=== PATIENT | male | born 1950 | race African-American/Black ===

== ENCOUNTER → 2016-02-10 | Emergency (ER) | payer MEDICAID ==
[~2016-02-10] VITALS: Ht 160 cm; Wt 72.6 kg
[~2016-02-10] MED LIST: AMLODIPINE BES2.5 MG ORAL; HYDROCHLOROTHIA50 MG ORAL; KEFLEX500 MG ORAL; TAMSULOSIN HCL0.4 MG ORAL
[2016-02-10 02:20] VITALS: BP 185/79
[2016-02-10 03:00] LABS: APPEARANCE,URINE CLEAR; KETONES,URINE NEGATIVE (NEGATIVE); LEUKOCYTE ESTERASE ,URINE 2+ (NEGATIVE); NITRITE,URINE NEGATIVE (NEGATIVE); PH,URINE 5 (4.5-8.0); PROTEIN,URINE NEGATIVE (NEGATIVE); UROBILINOGEN,URINE NORMAL MG/DL (0.0-1.0)
[2016-02-10 03:12] LABS: BACTERIA,URINE OCCASIONAL /HPF; RBC,URINE 0-2 /HPF (0 - 0); SQUAMOUS EPITHELIAL CELL,UR OCCASIONAL /LPF (NONE/OCC)
--- NOTE | 2016-02-10 03:21 | Emergency Room Report ---
History of Present Illness General Chief Complaint: General Complaint Source: Patient Present Illness HPI Is a 65-year-old male with history hypertension. He presents with right flank pain. Onset for the last 4 days. The decreased appetite. No nausea no vomiting. No diarrhea. Denies any other complaint. Pain is achy nature. No chest pain. Allergies: Coded Allergies: No Known Allergies (Unverified , 02/10/16) Patient History Past Medical History: see triage record, old chart reviewed, HTN Past Surgical History: none Pertinent Family History: none Social History: Denies: smoking Immunizations: other Reviewed Nursing Documentation: PMH: Agreed, PSxH: Agreed Nursing Documentation-PMH Past Medical History: No History, Except For Hx Hypertension: Yes Review of Systems Eye: Denies: blurred vision, eye pain ENT: Denies: ear pain, nose congestion, throat swelling Respiratory: Denies: cough, shortness of breath Cardiovascular: Denies: chest pain, palpitations Gastrointestinal: Denies: abdominal pain, diarrhea, nausea, vomiting Musculoskeletal: Denies: back pain, joint pain Skin: Denies: rash Neurological: Denies: headache, numbness Endocrine: Denies: increased thirst, increased urine Hematologic/Lymphatic: Denies: easy bruising All Other Systems: negative except mentioned in HPI Physical Exam Vital Signs Date Time Temp Pulse Resp B/P Pulse Ox O2 Delivery O2 Flow Rate FiO2 02/10/16 02:11 98.6 98 16 185/79 100 Room Air vitals with hypertension Sp02 EP Interpretation: reviewed, normal General Appearance: well appearing, no apparent distress, alert Head: normocephalic, atraumatic Eyes: bilateral eye EOMI, bilateral eye PERRL ENT: hearing grossly normal, normal pharynx Neck: full range of motion, supple, no meningismus Respiratory: chest non-tender, lungs clear, normal breath sounds Cardiovascular #1: regular rate, rhythm, no murmur Gastrointestinal: normal bowel sounds, non tender, no mass, no organomegaly, no bruit, non-distended Musculoskeletal: back normal, gait/station normal, normal range of motion Psychiatric: mood/affect normal Skin: warm/dry Medical Decision Making Diagnostic Impression: Primary Impression: Abdominal pain Qualified Codes: R10.84 - Generalized abdominal pain Additional Impressions: UTI (urinary tract infection) Qualified Codes: N30.00 - Acute cystitis without hematuria Hypertension Qualified Codes: I10 - Essential (primary) hypertension ER Course Patient presents with vague abdominal pain. On exam no evidence of acute abdomen. No surgical abdomen. No obstruction. He does have a urinary tract infection. We'll discharge home. CT unremarkable. CT/MRI/US Diagnostic Results CT/MRI/US Diagnostic Results : Imaging Test Ordered: CT abdomen and pelvis Impression Read by radiologist. CT negative. Urinary bladder wall thickening. May be due to cystitis. Last Vital Signs Date Time Temp Pulse Resp B/P Pulse Ox O2 Delivery O2 Flow Rate FiO2 02/10/16 02:20 98.6 16 185/79 100 Room Air 02/10/16 02:11 98 Status: improved Disposition: HOME, SELF-CARE Condition: Stable Scripts Cephalexin* (KEFLEX*) 500 Mg Capsule 500 MG ORAL TID, #21 CAP 0 Refills Prov: TAURUS JJ M.D. 02/10/16 Additional Instructions: Followup with your Dr. in 7 days. Return for worsening symptoms. TAURUS JJ M.D. Feb 10, 2016 03:21
[2016-02-10 03:24] VITALS: BP 185/79
--- NOTE | 2016-02-10 08:41 | Diagnostic Imaging Report ---
Indication: Abdominal pain Technique: Continuous helical transaxial imaging of the abdomen and pelvis was obtained from the lung bases to the pubic symphysis. No intravenous contrast was administered. Coronal 2-D reformats were also obtained. Total Dose length Product (DLP): [address] Dose Index Volume (CTDIvol): 13 mGy Comparison: none Findings: Lung bases are clear. Gallbladder is unremarkable. No nephrolithiasis or hydronephrosis demonstrated. No free fluid, free air or evidence of small bowel obstruction demonstrated. There is mild thickening of the urinary bladder wall but the bladder is not distended well. Appendix is normal. Arterial calcifications noted involving the aorta. Impression: No acute findings appreciated. [facility] has communicated the preliminary results to the Emergency Department. Their findings are largely concordant with this report.. Incidental findings as discussed above. The CT scanner at [facility] is accredited by the [employer] and the scans are performed using protocols designed to limit radiation exposure to as low as reasonably achievable to attain images of sufficient resolution adequate for diagnostic evaluation.
== END | disposition home or self-care (01) ==
LOC: EMR 02:29
DX: R10.9 Unspecified abdominal pain (principal); N39.0 Urinary tract infection, site not specified; I10 Essential (primary) hypertension
CPT/HCPCS: 74176; 81003; 87086; 99284

== ENCOUNTER 2016-08-03 01:38 | Emergency (ER) | payer MEDICAID ==
[~2016-08-03] VITALS: Ht 160 cm; Wt 63.5 kg
[2016-08-03 01:48] VITALS: BP 188/81
[2016-08-03] MEDS ORDERED: NORVASC10 MG ORAL (02:12)
[2016-08-03] MEDS ORDERED: HYDROCHLOROTH12.5 M2 ORAL (02:12)
--- NOTE | 2016-08-03 02:13 | Emergency Room Report ---
History of Present Illness General Chief Complaint: Eye Problems Source: Patient Present Illness HPI Is a 65-year-old male with a history of blood pressure. He presents with chief complaint of left eye redness. Onset tonight. No trauma. No fever chills but no nausea no vomiting. No blurred vision. Denies any other complaint. No recent coughing or sneezing. Allergies: Coded Allergies: No Known Allergies (Unverified , 02/10/16) Patient History Past Medical History: see triage record, old chart reviewed, HTN Past Surgical History: other Pertinent Family History: none Immunizations: other Reviewed Nursing Documentation: PMH: Agreed, PSxH: Agreed Nursing Documentation-PMH Hx Hypertension: Yes Review of Systems Eye: Denies: blurred vision, eye pain ENT: Denies: ear pain, nose congestion, throat swelling Respiratory: Denies: cough, shortness of breath Cardiovascular: Denies: chest pain, palpitations Gastrointestinal: Denies: abdominal pain, diarrhea, nausea, vomiting Musculoskeletal: Denies: back pain, joint pain Skin: Denies: rash Neurological: Denies: headache, numbness Endocrine: Denies: increased thirst, increased urine Hematologic/Lymphatic: Denies: easy bruising All Other Systems: negative except mentioned in HPI Physical Exam Vital Signs Date Time Temp Pulse Resp B/P Pulse Ox O2 Delivery O2 Flow Rate FiO2 08/03/16 01:41 98.1 88 18 188/81 98 Room Air vitals with hypertension Sp02 EP Interpretation: reviewed, normal General Appearance: well appearing, no apparent distress, alert Head: normocephalic, atraumatic Eyes: left eye other - Left subconjunctival hemorrhage, bilateral eye EOMI, bilateral eye PERRL ENT: hearing grossly normal, normal pharynx Neck: full range of motion, supple, no meningismus Respiratory: chest non-tender, lungs clear, normal breath sounds Cardiovascular #1: regular rate, rhythm, no murmur Gastrointestinal: normal bowel sounds, non tender, no mass, no organomegaly, no bruit, non-distended Musculoskeletal: back normal, gait/station normal, normal range of motion Psychiatric: mood/affect normal Skin: warm/dry Medical Decision Making Diagnostic Impression: Primary Impression: Hypertension Qualified Codes: I10 - Essential (primary) hypertension Additional Impression: Non-traumatic subconjunctival hemorrhage of left eye ER Course Patient presents with subconjunctival hemorrhage of the left eye. No trauma. No infection. He's been out of his blood pressure medication the last 3 days. No evidence of end organ damage. We'll put him back on his medication. Last Vital Signs Date Time Temp Pulse Resp B/P Pulse Ox O2 Delivery O2 Flow Rate FiO2 08/03/16 01:41 98.1 88 18 188/81 98 Room Air Status: improved Disposition: HOME, SELF-CARE Condition: Stable Scripts Hydrochlorothiazide* (HYDROCHLOROTHIAZIDE*) 12.5 Mg Capsule 12.5 MG ORAL DAILY, #90 CAP Prov: TAURUS JJ M.D. 08/03/16 Amlodipine Besylate (Norvasc) 10 Mg Tablet 10 MG ORAL DAILY, #90 TAB Prov: TAURUS JJ M.D. 08/03/16 Additional Instructions: Followup with your Dr. in 7 days. Return if symptom worsen. TAURUS JJ M.D. Aug 03, 2016 02:13
[2016-08-03 02:19] VITALS: BP 160/87
== END 2016-08-03 02:19 | disposition home or self-care (01) ==
LOC: EMR 01:58
DX: I10 Essential (primary) hypertension (principal); H11.32 Conjunctival hemorrhage, left eye
CPT/HCPCS: 99284

== ENCOUNTER 2018-07-27 03:56 | Observation (INO) | payer MEDICAID, MEDICARE ==
[~2018-07-27] VITALS: Ht 160 cm; Wt 77.1 kg
[2018-07-27] VITALS (7 sets, daily range): BP systolic 137–150; BP diastolic 71–82
[~2018-07-27 03:56] MED LIST changes: +HYDROCHLOROTH12.5 M2 ORAL; +NORVASC10 MG ORAL
--- NOTE | 2018-07-27 04:12 | NUR ---
ED Nurse Note: Patient walked in to ER c/o chest discomfort, lower back pain, statets that has discomfort sensation during urination. AAO x4, VSS at this time, skin is warm to touch.
[2018-07-27 05:20] LABS: BASOPHILS % (AUTO) 1.1 % (0.0-2.0); LYMPHOCYTES % (AUTO) 32.1 % (20.0-45.0); MEAN CORPUSCULAR VOLUME 91 FL (80-99); MONOCYTES % (AUTO) 7.9 % (1.0-10.0); PLATELET COUNT 249 K/UL (150-450); RED BLOOD COUNT 4.82 M/UL (4.70-6.10); RED CELL DISTRIBUTION WIDTH 11.8 % (11.6-14.8); WHITE BLOOD COUNT 6.6 K/UL (4.8-10.8)
[2018-07-27 05:22] LABS: APPEARANCE,URINE CLEAR; BILIRUBIN, URINE NEGATIVE (NEGATIVE); COLOR,URINE PALE YELLOW; GLUCOSE, URINE (UA) NEGATIVE (NEGATIVE); KETONES,URINE NEGATIVE (NEGATIVE); LEUKOCYTE ESTERASE ,URINE 3+ (NEGATIVE); NITRITE,URINE NEGATIVE (NEGATIVE); PH,URINE 5 (4.5-8.0); PROTEIN,URINE NEGATIVE (NEGATIVE); UROBILINOGEN,URINE NORMAL MG/DL (0.0-1.0)
[2018-07-27 05:27] LABS: ANION GAP 10 mmol/L (5-15); BLOOD UREA NITROGEN 23 mg/dL (7-18); CALCIUM 9.6 MG/DL (8.5-10.1); CARBON DIOXIDE 28 MMOL/L (21-32); CHLORIDE 101 MMOL/L (98-107); CREATININE 1.4 MG/DL (0.55-1.30); POTASSIUM 4.4 MMOL/L (3.5-5.1); SODIUM 139 MMOL/L (136-145)
[2018-07-27 05:40] LABS: ALANINE AMINOTRANSFERASE 29 U/L (12-78); ALBUMIN 4.5 G/DL (3.4-5.0); ALBUMIN/GLOBULIN RATIO 1.2 (1.0-2.7); ALKALINE PHOSPHATASE 67 U/L (46-116); ASPARTATE AMINO TRANSFERASE 19 U/L (15-37); BILIRUBIN,TOTAL 0.5 MG/DL (0.2-1.0); CKMB 1.5 NG/ML (0.0-3.6); CREATINE KINASE 159 U/L (26-308)
--- NOTE | 2018-07-27 06:24 | Emergency Room Report ---
History of Present Illness General Chief Complaint: Chest Pain Source: Patient Present Illness HPI 67-year-old male presents ED for evaluation. Patient complaining of chest pain which started around 2 AM. Sudden onset. Left-sided, sharp, 5 out of 10, nonradiating. Also states he felt dizzy. History of hypertension and history of anxiety. States that he takes Xanax for anxiety. Denies shortness of breath. No other aggravating relieving factors. Denies any other associated symptoms Allergies: Coded Allergies: No Known Allergies (Unverified , 02/10/16) Patient History Past Medical History: HTN Past Surgical History: none Pertinent Family History: none Social History: Denies: smoking, alcohol use, drug use Immunizations: UTD Reviewed Nursing Documentation: PMH: Agreed; PSxH: Agreed Nursing Documentation-PMH Past Medical History: No History, Except For Hx Hypertension: Yes Review of Systems All Other Systems: negative except mentioned in HPI Physical Exam Vital Signs Date Time Temp Pulse Resp B/P (MAP) Pulse Ox O2 Delivery O2 Flow Rate FiO2 07/27/18 03:58 97.3 63 14 145/75 (98) 96 Room Air Sp02 EP Interpretation: reviewed, normal General Appearance: no apparent distress, alert, GCS 15, non-toxic Head: normocephalic, atraumatic Eyes: bilateral eye normal inspection, bilateral eye PERRL ENT: hearing grossly normal, normal pharynx, no angioedema, normal voice Neck: full range of motion, supple/symm/no masses Respiratory: chest non-tender, lungs clear, normal breath sounds, speaking full sentences Cardiovascular #1: regular rate, rhythm, no edema Cardiovascular #2: 2+ carotid (R), 2+ carotid (L), 2+ radial (R), 2+ radial (L) , 2+ dorsalis pedis (R), 2+ dorsalis pedis (L) Gastrointestinal: normal bowel sounds, non tender, soft, non-distended, no guarding, no rebound Rectal: deferred Genitourinary: normal inspection, no CVA tenderness Musculoskeletal: back normal, gait/station normal, normal range of motion, non- tender Neurologic: alert, oriented x3, responsive, motor strength/tone normal, sensory intact, speech normal Psychiatric: judgement/insight normal, memory normal, mood/affect normal, no suicidal/homicidal ideation Reflexes: 3+ bicep (R), 3+ bicep (L), 3+ tricep (R), 3+ tricep (L), 3+ knee (R) , 3+ knee (L) Skin: normal color, no rash, warm/dry, well hydrated Lymphatic: no adenopathy Medical Decision Making Diagnostic Impression: Primary Impression: ACS (acute coronary syndrome) Additional Impression: UTI (urinary tract infection) Qualified Codes: N39.0 - Urinary tract infection, site not specified ER Course Hospital Course 67-year-old male presents ED complaining of chest pain Differential diagnoses include: KS/unstable angina, contusion, muscle strain, PTX, rib fracture Clinical course Patient placed on stretcher. on court recording monitor. After initial history and physical I ordered labs, EKG, chest x-ray labs reviewed- no leukocytosis, hb/hct stable, electrolytes ok, trop 0.094. UA few bacteria 10-15 wbc EKG - NSR no acute ischemic changes interrpested by me Chest x-ray- no acute process given aspirin. given abx Case discussed with Dr Seymour and he agreed to accept the patient to his service for further care and support I. I feel this is a highly complex case requiring extensive working including EKG/Rhythm strip, Xray/CT/US, Blood/urine lab work, repeat exams while in ED, and administration of strong opiates/narcotics for pain control, admission to hospital or close patient follow up. Diagnosis - ACS, UTI admitted to telemetry in serious condition Labs Test 07/27/18 04:50 White Blood Count 6.6 K/UL (4.8-10.8) Red Blood Count 4.82 M/UL (4.70-6.10) Hemoglobin 15.0 G/DL (14.2-18.0) Hematocrit 44.0 % (42.0-52.0) Mean Corpuscular Volume 91 FL (80-99) Mean Corpuscular Hemoglobin 31.1 PG (27.0-31.0) Mean Corpuscular Hemoglobin Concent 34.1 G/DL (32.0-36.0) Red Cell Distribution Width 11.8 % (11.6-14.8) Platelet Count 249 K/UL (150-450) Mean Platelet Volume 5.9 FL (6.5-10.1) Neutrophils (%) (Auto) 56.0 % (45.0-75.0) Lymphocytes (%) (Auto) 32.1 % (20.0-45.0) Monocytes (%) (Auto) 7.9 % (1.0-10.0) Eosinophils (%) (Auto) 3.0 % (0.0-3.0) Basophils (%) (Auto) 1.1 % (0.0-2.0) Urine Color Pale yellow Urine Appearance Clear Urine pH 5 (4.5-8.0) Urine Specific [place] 1.015 (1.005-1.035) Urine Protein Negative (NEGATIVE) Urine Glucose (UA) Negative (NEGATIVE) Urine Ketones Negative (NEGATIVE) Urine Blood Negative (NEGATIVE) Urine Nitrite Negative (NEGATIVE) Urine Bilirubin Negative (NEGATIVE) Urine Urobilinogen Normal MG/DL (0.0-1.0) Urine Leukocyte Esterase 3+ (NEGATIVE) Urine RBC 0 /HPF (0 - 0) Urine WBC 15-20 /HPF (0 - 0) Urine Squamous Epithelial Cells Few /LPF (NONE/OCC) Urine Bacteria Few /HPF (NONE) Sodium Level 139 MMOL/L (136-145) Potassium Level 4.4 MMOL/L (3.5-5.1) Chloride Level 101 MMOL/L (98-107) Carbon Dioxide Level 28 MMOL/L (21-32) Anion Gap 10 mmol/L (5-15) Blood Urea Nitrogen 23 mg/dL (7-18) Creatinine 1.4 MG/DL (0.55-1.30) Estimat Glomerular Filtration Rate > 60 mL/min (>60) Glucose Level 108 MG/DL (74-106) Calcium Level 9.6 MG/DL (8.5-10.1) Total Bilirubin 0.5 MG/DL (0.2-1.0) Aspartate Amino Transf (AST/SGOT) 19 U/L (15-37) Alanine Aminotransferase (ALT/SGPT) 29 U/L (12-78) Alkaline Phosphatase 67 U/L (46-116) Total Creatine Kinase 159 U/L (26-308) Creatine Kinase MB 1.5 NG/ML (0.0-3.6) Creatine Kinase MB Relative Index 0.9 Troponin I 0.094 ng/mL (0.000-0.056) Total Protein 8.1 G/DL (6.4-8.2) Albumin 4.5 G/DL (3.4-5.0) Globulin 3.6 g/dL Albumin/Globulin Ratio 1.2 (1.0-2.7) EKG Diagnostic Results Rate: normal Rhythm: NSR ST Segments: no acute changes ASA given to the pt in ED: Yes Rhythm Strip Diag. Results EP Interpretation: yes Rhythm: NSR, no PVC's, no ectopy Chest X-Ray Diagnostic Results Chest X-Ray Diagnostic Results : Chest X-Ray Ordered: Yes # of Views/Limited/Complete: 1 View Indication: Chest Pain EP Interpretation: Yes Interpretation: no consolidation, no effusion, no pneumothorax, no acute cardiopulmonary disease Impression: No acute disease Electronically Signed by: Electronically signed by Juan Caceres MD Last Vital Signs Date Time Temp Pulse Resp B/P (MAP) Pulse Ox O2 Delivery O2 Flow Rate FiO2 07/27/18 05:46 98.0 62 12 145/75 Room Air 07/27/18 04:09 96 Status: improved Disposition: ADMITTED INPATIENT Condition: Serious Juan Caceres MD Jul 27, 2018 06:24
[2018-07-27] MEDS ORDERED: cefTRIAXone 1 GM in NS 55 ML IVPB ONE (06:30)
--- NOTE | 2018-07-27 06:30 | NUR ---
ED Nurse Note: Patient ios in the bed resting, VSS at this time, no acute disstress noticed.
--- NOTE | 2018-07-27 06:50 | NUR ---
ED Nurse Note: Patient's BP is 175/80, ER MD aware, no new orders.
--- NOTE | 2018-07-27 07:09 | NUR ---
HAND-OFF: Report given to IMER Hagen.
--- NOTE | 2018-07-27 08:00 | NUR ---
ED Nurse Note: Reports given to IMER Deluca
--- NOTE | 2018-07-27 08:30 | NUR ---
PT IS A 67 YR OLD MALE HERE DUE TO ACUTE CORONARY SYNDROME. PT IS A/OX4 AND ABLE TO VERBALIZE NEEDS. HEAD TO TOE ASSESSMENT DONE AND ADMISSION PROTOCOL COMPLETE. PT EDUCATED ON FALL RISK PRECAUTIONS AND RISK FOR SKIN BREAKDOWN. VERBALIZED UNDERSTANDING. PT ORIENTED TO STAFF AND UNIT. ALL NEEDS ANTICIPATED AND MET. CALL LIGHT WITHIN REACH.
[2018-07-27] MEDS ORDERED: ZOLPIDEM TARTRA10 MG ORAL (09:59)
--- NOTE | 2018-07-27 10:00 | NUR ---
CALLED MD WRIGHT OFFICE TO MAKE AWARE OF NEW ADMISSION, AWAITING CALL BACK TO SEE IF WOULD LIKE TO START HOME MEDS.
--- NOTE | 2018-07-27 10:40 | NUR ---
CALLED MD HIDALGO TO MAKE AWARE OF NEW ADMISSION AND SEE IF WOULD LIKE TO PUT IN ADMITTING ORDERS/START PT ON HOME MEDS. AWAITING CALL BACK.
[2018-07-27] MEDS ORDERED: LOPRESSOR25 M1 ORAL (11:45)
--- NOTE | 2018-07-27 12:00 | NUR ---
CALLED MD WRIGHT TO MAKE AWARE OF NEW ADMISSION AND LEFT MESSAGE (AWAITING CALL BACK).
--- NOTE | 2018-07-27 13:30 | NUR ---
CALLED MD WRIGHT AND SPOKE TO MANAGER DAIRY WHO WILL MAKE MD AWARE OF NEW ADMISSION. AWAITING CALL BACK.
[2018-07-27] MEDS ORDERED: Milk of Magnesia 30ml Ud ORAL PRN (14:00)
[2018-07-27] MEDS ORDERED: Miralax 17gm pkt ORAL PRN (14:00)
[2018-07-27] MEDS ORDERED: Morphine Sulfate 2mg/ml Inj(IV/IM USE ONLY) IVP PRN (14:00)
[2018-07-27] MEDS ORDERED: Mylanta II UD 30ml ORAL PRN (14:00)
[2018-07-27] MEDS ORDERED: LORazepam Inj 2mg/ml 1ml IV PRN (14:00)
[2018-07-27] MEDS ORDERED: Zolpidem 5mg tab ORAL PRN (14:00)
[2018-07-27] MEDS ORDERED: Morphine Sulfate 4mg/ml Inj (IV USE ONLY) IVP PRN (14:00)
[2018-07-27] MEDS ORDERED: Nitroglycerin Subl 0.4mg tab SL PRN (14:00)
--- NOTE | 2018-07-27 14:00 | NUR ---
CASE MANAGEMENT: INITIAL REVIEW 67 YO M PRESENTED TO OUR ED FROM HOME CC: CP PMHx: HTN. SI:ACS. T 97.3 HR 63 RR 14 B/P 145/75 SATS 96% ON RA BUN 23 CR 1.4 GLU 108 TROPONIN 0.094 IS: ASA PO X1 PATIENT ADMITTED TO TELE 07/27/2018 @ 0615 DCP: PATIENT TO BE DISCHARGED TO HOME ONCE MEDICALLY CLEARED. PLAN OF CARE: CARDIO EVAL Addendum: 07/28/18 at 1047 by Shannon Mcgraw CM INTERQUAL MET
[2018-07-27] MEDS ORDERED: HydrALAZINE 25mg tab ORAL PRN (14:15)
[2018-07-27] MEDS: Heparin 5000 units/ml inj SUBQ SCH ×2 (14:59→21:10)
--- NOTE | 2018-07-27 15:00 | NUR ---
SPOKE WITH MD WRIGHT WHO STATES OKAY TO GIVE BP MEDS TODAY. STATES HE SPOKE TO MD SANDOVAL TO MAKE AWARE OF CONSULT. PER MD WRIGHT, MD SANDOVAL WILL SEE PT TODAY.
--- NOTE | 2018-07-27 15:21 | History and Physical ---
History of Present Illness General Date patient seen: Jul 27, 2018 Time patient seen: 15:12 Reason for Hospitalization: Chest Pain Present Illness HPI 67 y/o AA man who presented to the ED complaining of chest pain which started around 2 AM. According to the ED note, the pain was sudden onset, Left-sided, sharp, 5 out of 10, and nonradiating. He also stated he felt dizzy and lightheaded. He has a history of hypertension and history of anxiety. Denied any shortness of breath. No other aggravating relieving factors. He also stated that he had more "sensitive" urine, and was recently treated for a UTI by his PCP with abx. No fevers/chills, no dysuria, or changes in urinary habits. He was admitted overnight, initial EKG ad trop were unremarkable. Today he denies ever experiencing chest pain. Allergies: Coded Allergies: No Known Allergies (Unverified , 02/10/16) Medication History Scheduled Amlodipine Besylate (Norvasc), 10 MG ORAL DAILY Hydrochlorothiazide* (Hydrochlorothiazide*), 12.5 MG ORAL DAILY Metoprolol Tartrate (Metoprolol Tartrate), 50 MG ORAL DAILY, (Reported) Scheduled PRN Zolpidem Tartrate* (Zolpidem Tartrate*), 10 MG ORAL BEDTIME PRN for Insomnia, ( Reported) Patient History History Provided By: Patient Healthcare decision maker WALTERShane CHRISTIANSON IS PRIMARY CONTACT [phone] Resuscitation status Full Code Advanced Directive on File No Past Medical/Surgical History Past Medical/Surgical History: (1) Hypertension Family History Family History: Patient reports no known family medical history. Review of Systems ROS Narrative CONSTITUTIONAL: No weight loss, fever, chills, weakness or fatigue. HEENT: Eyes: No visual loss, blurred vision, double vision or yellow sclerae. Ears, Nose, Throat: No hearing loss, sneezing, congestion, runny nose or sore throat. SKIN: No rash or itching. CARDIOVASCULAR: No chest pain, chest pressure or chest discomfort. No palpitations or edema. RESPIRATORY: No shortness of breath, cough or sputum. GASTROINTESTINAL: No anorexia, nausea, vomiting or diarrhea. No abdominal pain or blood. NEUROLOGICAL: No headache, syncope, paralysis, ataxia, numbness or tingling in the extremities. No change in bowel or bladder control. +dizziness/ lightheadedness MUSCULOSKELETAL: No muscle, back pain, joint pain or stiffness. HEMATOLOGIC: No anemia, bleeding or bruising. LYMPHATICS: No enlarged nodes. No history of splenectomy. PSYCHIATRIC: No history of depression or anxiety. ENDOCRINOLOGIC: No reports of sweating, cold or heat intolerance. No polyuria or polydipsia. ALLERGIES: No history of asthma, hives, eczema or rhinitis. Physical Exam Physical Exam Narrative General: alert, cooperative, no distress, appears stated age Head: normocephalic, without obvious abnormality, atraumatic Eyes: conjunctivae/corneas clear. PERRL, EOM's intact Throat: lips, mucosa, and tongue normal. MMM Neck: supple, symmetrical, trachea midline, and no JVD Lungs: clear to auscultation bilaterally Heart: regular rate and rhythm, S1, S2 normal, no murmur, click, rub or gallop Abdomen: soft, non-tender, non-distended, bowel sounds normal; no masses or organomegaly Extremities: extremities normal, atraumatic, no cyanosis or edema Pulses: 2+ and symmetric Skin: skin color, texture, turgor normal; no rashes or lesions Neurologic: grossly normal, no focal deficits Last 24 Hour Vital Signs Date Time Temp Pulse Resp B/P (MAP) Pulse Ox O2 Delivery O2 Flow Rate FiO2 07/27/18 12:00 97.5 75 18 141/82 (101) 99 07/27/18 12:00 76 07/27/18 09:34 Room Air 07/27/18 09:29 Room Air 07/27/18 08:30 75 07/27/18 08:30 97.5 90 18 142/73 (96) 99 07/27/18 08:01 98.0 76 20 143/78 100 Room Air 07/27/18 07:18 97.9 65 18 149/80 100 Room Air 07/27/18 05:46 98.0 62 12 145/75 Room Air 07/27/18 04:09 97.3 14 145/75 96 Room Air 07/27/18 04:09 63 14 Room Air 07/27/18 03:58 97.3 63 14 145/75 (98) 96 Room Air Intake and Output 07/26/18 07/27/18 18:59 06:59 # Voids 1 Laboratory Tests Test 07/27/18 04:50 07/27/18 14:28 White Blood Count 6.6 K/UL (4.8-10.8) Red Blood Count 4.82 M/UL (4.70-6.10) Hemoglobin 15.0 G/DL (14.2-18.0) Hematocrit 44.0 % (42.0-52.0) Mean Corpuscular Volume 91 FL (80-99) Mean Corpuscular Hemoglobin 31.1 PG (27.0-31.0) H Mean Corpuscular Hemoglobin Concent 34.1 G/DL (32.0-36.0) Red Cell Distribution Width 11.8 % (11.6-14.8) Platelet Count 249 K/UL (150-450) Mean Platelet Volume 5.9 FL (6.5-10.1) L Neutrophils (%) (Auto) 56.0 % (45.0-75.0) Lymphocytes (%) (Auto) 32.1 % (20.0-45.0) Monocytes (%) (Auto) 7.9 % (1.0-10.0) Eosinophils (%) (Auto) 3.0 % (0.0-3.0) Basophils (%) (Auto) 1.1 % (0.0-2.0) Urine Color Pale yellow Urine Appearance Clear Urine pH 5 (4.5-8.0) Urine Specific [place] 1.015 (1.005-1.035) Urine Protein Negative (NEGATIVE) Urine Glucose (UA) Negative (NEGATIVE) Urine Ketones Negative (NEGATIVE) Urine Blood Negative (NEGATIVE) Urine Nitrite Negative (NEGATIVE) Urine Bilirubin Negative (NEGATIVE) Urine Urobilinogen Normal MG/DL (0.0-1.0) Urine Leukocyte Esterase 3+ (NEGATIVE) H Urine RBC 0 /HPF (0 - 0) Urine WBC 15-20 /HPF (0 - 0) H Urine Squamous Epithelial Cells Few /LPF (NONE/OCC) Urine Bacteria Few /HPF (NONE) Sodium Level 139 MMOL/L (136-145) Potassium Level 4.4 MMOL/L (3.5-5.1) Chloride Level 101 MMOL/L (98-107) Carbon Dioxide Level 28 MMOL/L (21-32) Anion Gap 10 mmol/L (5-15) Blood Urea Nitrogen 23 mg/dL (7-18) H Creatinine 1.4 MG/DL (0.55-1.30) H Estimat Glomerular Filtration Rate > 60 mL/min (>60) Glucose Level 108 MG/DL (74-106) H Calcium Level 9.6 MG/DL (8.5-10.1) Total Bilirubin 0.5 MG/DL (0.2-1.0) Aspartate Amino Transf (AST/SGOT) 19 U/L (15-37) Alanine Aminotransferase (ALT/SGPT) 29 U/L (12-78) Alkaline Phosphatase 67 U/L (46-116) Total Creatine Kinase 159 U/L (26-308) Creatine Kinase MB 1.5 NG/ML (0.0-3.6) Creatine Kinase MB Relative Index 0.9 Troponin I 0.094 ng/mL (0.000-0.056) Pending Total Protein 8.1 G/DL (6.4-8.2) Albumin 4.5 G/DL (3.4-5.0) Globulin 3.6 g/dL Albumin/Globulin Ratio 1.2 (1.0-2.7) Height (Feet): 5 Height (Inches): 3.00 Weight (Pounds): 170 Medications Current Medications Medications (Trade) Dose Ordered Sig/Vasile Route PRN Reason Start Time Stop Time Status Last Admin Dose Admin Acetaminophen (Tylenol) 650 mg Q4H PRN ORAL Mild Pain (Pain Scale 1-3) 07/27/18 14:00 08/26/18 13:59 Acetaminophen (Tylenol) 650 mg Q4H PRN ORAL fever (temp>100.5 F) 07/27/18 14:00 08/26/18 13:59 Al Hydroxide/Mg Hydroxide (Mylanta II) 30 ml Q6H PRN ORAL dyspepsia 07/27/18 14:00 08/26/18 13:59 Amlodipine Besylate (Norvasc) 10 mg DAILY ORAL 07/28/18 09:00 08/27/18 08:59 Bisacodyl (Dulcolax) 10 mg HSPRN PRN RECTAL Constipation 07/27/18 14:00 08/26/18 13:59 Dextrose (Dextrose 50%) 25 ml Q30M PRN IV Hypoglycemia 07/27/18 14:00 08/26/18 13:59 Dextrose (Dextrose 50%) 50 ml Q30M PRN IV Hypoglycemia 07/27/18 14:00 08/26/18 13:59 Diphenhydramine HCl (Benadryl) 25 mg Q6H PRN ORAL Itching/Pruritis 07/27/18 14:00 08/26/18 13:59 Docusate Sodium (Colace) 100 mg EVERY 12 HOURS ORAL 07/27/18 21:00 08/26/18 20:59 Heparin Sodium (Porcine) (Heparin 5000 units/ml) 5,000 units EVERY 8 HOURS SUBQ 07/27/18 14:00 08/26/18 13:59 07/27/18 14:59 Hydralazine HCl (Apresoline) 25 mg Q6H PRN ORAL For High Blood Pressure 07/27/18 14:15 08/26/18 14:14 Hydrochlorothiazide (Hydrodiuril) 12.5 mg DAILY ORAL 07/28/18 09:00 08/27/18 08:59 Lorazepam (Ativan 2mg/ml 1ml) 0.5 mg Q4H PRN IV For Anxiety 07/27/18 14:00 08/03/18 13:59 Magnesium Hydroxide (Mom) 30 ml HSPRN PRN ORAL Constipation 07/27/18 14:00 08/26/18 13:59 Metoprolol Tartrate (Lopressor) 50 mg DAILY ORAL 07/28/18 09:00 08/27/18 08:59 Morphine Sulfate (Morphine Sulfate) 2 mg Q4H PRN IVP Moderate Pain (Pain Scale 4-6) 07/27/18 14:00 08/03/18 13:59 Morphine Sulfate (Morphine Sulfate) 4 mg Q4H PRN IVP Severe Pain (Pain Scale 7-10) 07/27/18 14:00 08/03/18 13:59 Nitroglycerin (Ntg) 0.4 mg Q5M X 3 DOSES PRN SL Prn Chest Pain 07/27/18 14:00 08/26/18 13:59 Ondansetron HCl (Zofran) 4 mg Q6H PRN IVP Nausea & Vomiting 07/27/18 14:00 08/26/18 13:59 Polyethylene Glycol (Miralax) 17 gm HSPRN PRN ORAL Constipation 07/27/18 14:00 08/26/18 13:59 Zolpidem Tartrate (Ambien) 5 mg HSPRN PRN ORAL Insomnia 07/27/18 14:30 08/03/18 14:29 Assessment/Plan Assessment/Plan: 67 y/o AA ma with hx of HTN, presents with atypical chest pain with associated lightheadedness/dizziness along with what appears to be a partially treated UTI. #Atypical Chest Pain #Lightheadedness/dizziness - Place in observation - r/o acs with serial ekg/trops - Cardiology consult - Telemetry monitoring - Check Echocardiogram - Check orthostatics #HTN- stable - Cont outpt BP meds #UTI- improved - Partially treated - Cont IV abx - ID consultation #Abnormal creatinine - CKD vs JAYEDN - Check repeat BMP tomorrow to follow trend Veronica Gustafson MD Jul 27, 2018 15:21
--- NOTE | 2018-07-27 15:22 | Diagnostic Imaging Report ---
Indication: Chest pain for one day Technique: One view of the chest Comparison: 01/21/2018 Findings: Large borderline enlarged. Lungs and pleural spaces are clear. There is no significant interim change Impression: No acute process
[2018-07-27] MEDS ORDERED: Metoprolol Tartrate 50mg tab ORAL SCH (15:30)
[2018-07-27] MEDS ORDERED: hydroCHLOROthiazide 12.5mg TAB ORAL SCH (15:30)
--- NOTE | 2018-07-27 15:32 | NUR ---
SPOKE WITH LAB ([facility]) AND WAS NOTIFIED TROPONIN LEVEL 0.063, CALLED MD WRIGHT AND SPOKE TO AMBULATORY CARE NURSE WHO STATES SHE WILL FORWARD TROPONIN LEVEL RESULTS TO .
--- NOTE | 2018-07-27 18:41 | Cardiology Progress Note ---
Assessment/Plan Assessment/Plan atypical cp min abn cardiac enzyme renal insuf htn repeat trop need echo ekg consider lexiscan based on trop levels on fu [id number] Objective Last 24 Hour Vital Signs Date Time Temp Pulse Resp B/P (MAP) Pulse Ox O2 Delivery O2 Flow Rate FiO2 07/27/18 16:13 71 149/90 07/27/18 16:00 71 07/27/18 16:00 98.4 73 18 150/78 (102) 99 07/27/18 12:00 97.5 75 18 141/82 (101) 99 07/27/18 12:00 76 07/27/18 09:34 Room Air 07/27/18 09:29 Room Air 07/27/18 08:30 75 07/27/18 08:30 97.5 90 18 142/73 (96) 99 07/27/18 08:01 98.0 76 20 143/78 100 Room Air 07/27/18 07:18 97.9 65 18 149/80 100 Room Air 07/27/18 05:46 98.0 62 12 145/75 Room Air 07/27/18 04:09 97.3 14 145/75 96 Room Air 07/27/18 04:09 63 14 Room Air 07/27/18 03:58 97.3 63 14 145/75 (98) 96 Room Air Intake and Output 07/26/18 07/27/18 19:00 07:00 # Voids 1 Laboratory Tests Test 07/27/18 04:50 07/27/18 14:28 White Blood Count 6.6 K/UL (4.8-10.8) Red Blood Count 4.82 M/UL (4.70-6.10) Hemoglobin 15.0 G/DL (14.2-18.0) Hematocrit 44.0 % (42.0-52.0) Mean Corpuscular Volume 91 FL (80-99) Mean Corpuscular Hemoglobin 31.1 PG (27.0-31.0) H Mean Corpuscular Hemoglobin Concent 34.1 G/DL (32.0-36.0) Red Cell Distribution Width 11.8 % (11.6-14.8) Platelet Count 249 K/UL (150-450) Mean Platelet Volume 5.9 FL (6.5-10.1) L Neutrophils (%) (Auto) 56.0 % (45.0-75.0) Lymphocytes (%) (Auto) 32.1 % (20.0-45.0) Monocytes (%) (Auto) 7.9 % (1.0-10.0) Eosinophils (%) (Auto) 3.0 % (0.0-3.0) Basophils (%) (Auto) 1.1 % (0.0-2.0) Urine Color Pale yellow Urine Appearance Clear Urine pH 5 (4.5-8.0) Urine Specific [place] 1.015 (1.005-1.035) Urine Protein Negative (NEGATIVE) Urine Glucose (UA) Negative (NEGATIVE) Urine Ketones Negative (NEGATIVE) Urine Blood Negative (NEGATIVE) Urine Nitrite Negative (NEGATIVE) Urine Bilirubin Negative (NEGATIVE) Urine Urobilinogen Normal MG/DL (0.0-1.0) Urine Leukocyte Esterase 3+ (NEGATIVE) H Urine RBC 0 /HPF (0 - 0) Urine WBC 15-20 /HPF (0 - 0) H Urine Squamous Epithelial Cells Few /LPF (NONE/OCC) Urine Bacteria Few /HPF (NONE) Sodium Level 139 MMOL/L (136-145) Potassium Level 4.4 MMOL/L (3.5-5.1) Chloride Level 101 MMOL/L (98-107) Carbon Dioxide Level 28 MMOL/L (21-32) Anion Gap 10 mmol/L (5-15) Blood Urea Nitrogen 23 mg/dL (7-18) H Creatinine 1.4 MG/DL (0.55-1.30) H Estimat Glomerular Filtration Rate > 60 mL/min (>60) Glucose Level 108 MG/DL (74-106) H Calcium Level 9.6 MG/DL (8.5-10.1) Total Bilirubin 0.5 MG/DL (0.2-1.0) Aspartate Amino Transf (AST/SGOT) 19 U/L (15-37) Alanine Aminotransferase (ALT/SGPT) 29 U/L (12-78) Alkaline Phosphatase 67 U/L (46-116) Total Creatine Kinase 159 U/L (26-308) Creatine Kinase MB 1.5 NG/ML (0.0-3.6) Creatine Kinase MB Relative Index 0.9 Troponin I 0.094 ng/mL (0.000-0.056) 0.063 ng/mL (0.000-0.056) Total Protein 8.1 G/DL (6.4-8.2) Albumin 4.5 G/DL (3.4-5.0) Globulin 3.6 g/dL Albumin/Globulin Ratio 1.2 (1.0-2.7) Pradip King MD Jul 27, 2018 18:41
[2018-07-27] MEDS ORDERED: Lexiscan 0.4mg/5ml syringe IV PRN (18:45)
--- NOTE | 2018-07-27 19:30 | NUR ---
GAVE FULL REPORT TO JANINA WILLAMS. PT RESTING IN BED FREE FROM APPARENT DISTRESS.
--- NOTE | 2018-07-27 19:35 | NUR ---
NURSE NOTES: BEDSIDE REPORT RECEIVED FROM IMER VALDIVIA. PT IS X4, ABLE TO MAKE NEEDS KNOWN. NETWORK SPECIALIST SHOWING NSR. ON RA, SATING WELL. SKIN IS CLEAN, DRY, INTACT. RAC 20 ASYMPTOMATIC. BED IS LOCKED IN LOWEST POSITION, SR X3, CALL QUAN W/ IN REACH, BED ALARM ON. WILL CONTINUE TO MONITOR AND FOLLOW W/ PLAN OF CARE.
--- NOTE | 2018-07-27 19:36 | Infectious Diseases Prog Note ---
Assessment/Plan Assessment/Plan Full consult dictated: A) 1) uti, + ua, + symptoms 2) chest pain 3) pmh noted 4) allergies - nkda P) 1) continue rocephin 2) check urine culture 3) thank you Subjective Allergies: Coded Allergies: No Known Allergies (Unverified , 02/10/16) Objective Vital Signs Last 24 Hour Vital Signs Date Time Temp Pulse Resp B/P (MAP) Pulse Ox O2 Delivery O2 Flow Rate FiO2 07/27/18 16:13 71 149/90 07/27/18 16:00 71 07/27/18 16:00 98.4 73 18 150/78 (102) 99 07/27/18 12:00 97.5 75 18 141/82 (101) 99 07/27/18 12:00 76 07/27/18 09:34 Room Air 07/27/18 09:29 Room Air 07/27/18 08:30 75 07/27/18 08:30 97.5 90 18 142/73 (96) 99 07/27/18 08:01 98.0 76 20 143/78 100 Room Air 07/27/18 07:18 97.9 65 18 149/80 100 Room Air 07/27/18 05:46 98.0 62 12 145/75 Room Air 07/27/18 04:09 97.3 14 145/75 96 Room Air 07/27/18 04:09 63 14 Room Air 07/27/18 03:58 97.3 63 14 145/75 (98) 96 Room Air Height (Feet): 5 Height (Inches): 3.00 Weight (Pounds): 170 Laboratory Tests Test 07/27/18 04:50 07/27/18 14:28 White Blood Count 6.6 K/UL (4.8-10.8) Red Blood Count 4.82 M/UL (4.70-6.10) Hemoglobin 15.0 G/DL (14.2-18.0) Hematocrit 44.0 % (42.0-52.0) Mean Corpuscular Volume 91 FL (80-99) Mean Corpuscular Hemoglobin 31.1 PG (27.0-31.0) H Mean Corpuscular Hemoglobin Concent 34.1 G/DL (32.0-36.0) Red Cell Distribution Width 11.8 % (11.6-14.8) Platelet Count 249 K/UL (150-450) Mean Platelet Volume 5.9 FL (6.5-10.1) L Neutrophils (%) (Auto) 56.0 % (45.0-75.0) Lymphocytes (%) (Auto) 32.1 % (20.0-45.0) Monocytes (%) (Auto) 7.9 % (1.0-10.0) Eosinophils (%) (Auto) 3.0 % (0.0-3.0) Basophils (%) (Auto) 1.1 % (0.0-2.0) Urine Color Pale yellow Urine Appearance Clear Urine pH 5 (4.5-8.0) Urine Specific [place] 1.015 (1.005-1.035) Urine Protein Negative (NEGATIVE) Urine Glucose (UA) Negative (NEGATIVE) Urine Ketones Negative (NEGATIVE) Urine Blood Negative (NEGATIVE) Urine Nitrite Negative (NEGATIVE) Urine Bilirubin Negative (NEGATIVE) Urine Urobilinogen Normal MG/DL (0.0-1.0) Urine Leukocyte Esterase 3+ (NEGATIVE) H Urine RBC 0 /HPF (0 - 0) Urine WBC 15-20 /HPF (0 - 0) H Urine Squamous Epithelial Cells Few /LPF (NONE/OCC) Urine Bacteria Few /HPF (NONE) Sodium Level 139 MMOL/L (136-145) Potassium Level 4.4 MMOL/L (3.5-5.1) Chloride Level 101 MMOL/L (98-107) Carbon Dioxide Level 28 MMOL/L (21-32) Anion Gap 10 mmol/L (5-15) Blood Urea Nitrogen 23 mg/dL (7-18) H Creatinine 1.4 MG/DL (0.55-1.30) H Estimat Glomerular Filtration Rate > 60 mL/min (>60) Glucose Level 108 MG/DL (74-106) H Calcium Level 9.6 MG/DL (8.5-10.1) Total Bilirubin 0.5 MG/DL (0.2-1.0) Aspartate Amino Transf (AST/SGOT) 19 U/L (15-37) Alanine Aminotransferase (ALT/SGPT) 29 U/L (12-78) Alkaline Phosphatase 67 U/L (46-116) Total Creatine Kinase 159 U/L (26-308) Creatine Kinase MB 1.5 NG/ML (0.0-3.6) Creatine Kinase MB Relative Index 0.9 Troponin I 0.094 ng/mL (0.000-0.056) 0.063 ng/mL (0.000-0.056) Total Protein 8.1 G/DL (6.4-8.2) Albumin 4.5 G/DL (3.4-5.0) Globulin 3.6 g/dL Albumin/Globulin Ratio 1.2 (1.0-2.7) Current Medications Medications (Trade) Dose Ordered Sig/Vasile Route PRN Reason Start Time Stop Time Status Last Admin Dose Admin Acetaminophen (Tylenol) 650 mg Q4H PRN ORAL Mild Pain (Pain Scale 1-3) 07/27/18 14:00 08/26/18 13:59 Acetaminophen (Tylenol) 650 mg Q4H PRN ORAL fever (temp>100.5 F) 07/27/18 14:00 08/26/18 13:59 Al Hydroxide/Mg Hydroxide (Mylanta II) 30 ml Q6H PRN ORAL dyspepsia 07/27/18 14:00 08/26/18 13:59 Amlodipine Besylate (Norvasc) 10 mg DAILY ORAL 07/28/18 09:00 08/27/18 08:59 Bisacodyl (Dulcolax) 10 mg HSPRN PRN RECTAL Constipation 07/27/18 14:00 08/26/18 13:59 Dextrose (Dextrose 50%) 25 ml Q30M PRN IV Hypoglycemia 07/27/18 14:00 08/26/18 13:59 Dextrose (Dextrose 50%) 50 ml Q30M PRN IV Hypoglycemia 07/27/18 14:00 08/26/18 13:59 Diphenhydramine HCl (Benadryl) 25 mg Q6H PRN ORAL Itching/Pruritis 07/27/18 14:00 08/26/18 13:59 Docusate Sodium (Colace) 100 mg EVERY 12 HOURS ORAL 07/27/18 21:00 08/26/18 20:59 Heparin Sodium (Porcine) (Heparin 5000 units/ml) 5,000 units EVERY 8 HOURS SUBQ 07/27/18 14:00 08/26/18 13:59 07/27/18 14:59 Hydralazine HCl (Apresoline) 25 mg Q6H PRN ORAL For High Blood Pressure 07/27/18 14:15 08/26/18 14:14 Hydrochlorothiazide (Hydrodiuril) 12.5 mg DAILY ORAL 07/28/18 09:00 08/27/18 08:59 Lorazepam (Ativan 2mg/ml 1ml) 0.5 mg Q4H PRN IV For Anxiety 07/27/18 14:00 08/03/18 13:59 Magnesium Hydroxide (Mom) 30 ml HSPRN PRN ORAL Constipation 07/27/18 14:00 08/26/18 13:59 Metoprolol Tartrate (Lopressor) 50 mg DAILY ORAL 07/28/18 09:00 08/27/18 08:59 Morphine Sulfate (Morphine Sulfate) 2 mg Q4H PRN IVP Moderate Pain (Pain Scale 4-6) 07/27/18 14:00 08/03/18 13:59 Morphine Sulfate (Morphine Sulfate) 4 mg Q4H PRN IVP Severe Pain (Pain Scale 7-10) 07/27/18 14:00 08/03/18 13:59 Nitroglycerin (Ntg) 0.4 mg Q5M X 3 DOSES PRN SL Prn Chest Pain 07/27/18 14:00 08/26/18 13:59 Ondansetron HCl (Zofran) 4 mg Q6H PRN IVP Nausea & Vomiting 07/27/18 14:00 08/26/18 13:59 Polyethylene Glycol (Miralax) 17 gm HSPRN PRN ORAL Constipation 07/27/18 14:00 08/26/18 13:59 Regadenoson (Lexiscan) 0.4 mg ONCE PRN IV stress test 07/27/18 18:45 07/29/18 18:44 Zolpidem Tartrate (Ambien) 5 mg HSPRN PRN ORAL Insomnia 07/27/18 14:30 08/03/18 14:29 Bulmaro Neumann MD Jul 27, 2018 19:36
[2018-07-27] MEDS: Zolpidem 5mg tab ORAL PRN (21:04)
[2018-07-27] MEDS: Docusate 100mg cap ORAL SCH (21:04)
[2018-07-27] MEDS: cefTRIAXone 1 GM in D5W 50 ML IVPB SCH (21:33)
--- NOTE | 2018-07-27 21:45 | Consultation ---
DATE OF CONSULTATION: 07/27/2018 CARDIOLOGY CONSULTATION CONSULTING PHYSICIAN: Pradip King M.D. REFERRING PHYSICIAN: Veronica Gustafson M.D. REASON FOR REFERRAL: Chest pain. HISTORY OF PRESENT ILLNESS: The patient is a 67-year-old gentleman who presented to the hospital for various reasons, basically lightheaded and dizzy, having elevated blood pressure. He states he has had poor eating habits recently and woke up with pain and describes as tension in his chest yesterday. No longer has this discomfort, but when pressed, he seems to indicate that the pressure is what he is describing in his chest. Really not seen that it is exertional, in fact he does walk a lot he says that he walks and does not have any pain or pressure, no PND, and no dyspnea on exertion. He does not have any PND or orthopnea. He did have some dizziness yesterday apparently at some point and no palpitations. PAST MEDICAL HISTORY: Positive for borderline diabetes and high blood pressure and high cholesterol. No heart attack, cancer, stroke, hepatitis, tuberculosis, asthma, or emphysema. He does have bronchitis. No history of ulcers, kidney problems, liver problems, thyroid problems, anemia, HIV, AIDS, or blood clots or prostate problems. Denies any other medical problems. ALLERGIES: He denies any allergy to medicatio Ns. SOCIAL HISTORY: He does not smoke or drink or use drugs. He states he is in the [employer] business. He lives at home with his daughters. REVIEW OF SYSTEMS: GASTROINTESTINAL: Positive for some nausea and decreased appetite, now improving. : Denies. PULMONARY: Denies. CONSTITUTIONAL: Denies. NEUROLOGICAL: Denies. PHYSICAL EXAMINATION: GENERAL: Shows to be middle-aged gentleman, in no respiratory distress. NECK: Supple. No jugular venous distention. LUNGS: Clear to auscultation and percussion. CARDIAC: S1 is normal. S2 is normal. Regular rate and rhythm. No heaves, thrills, or gallops noted. ABDOMEN: Soft, obese. Positive bowel sounds. Nontender. EXTREMITIES: There is no edema or clubbing or cyanosis. NEUROLOGICAL: He is awake, alert, responsive, and in no apparent respiratory distress. LABORATORY AND DIAGNOSTIC DATA: Laboratory values, his troponin first set 0.094 and subsequently 0.63. Sodium 139, potassium 4.4, chloride 101, bicarb 20, BUN of 23, creatinine 1.4, and glucose of 108. Liver function tests are normal. His white count is 6.6, hemoglobin 15, and platelet count of 249. His urinalysis shows 3+ leukocyte esterase, 15 to 20 wbcs. His chest x-ray performed in the emergency room shows no acute processes, large borderline enlarged heart. His electrocardiogram shows sinus rhythm, no significant ST-segment changes. He does have some T-wave inversions in III and aVF, but not significant in . EKG has not been repeated since the original EKG was performed. ASSESSMENT AND PLAN: 1. Questionable chest pain. 2. Hypertension. 3. Obesity. 4. Borderline diabetes. 5. Urinary tract infection. 6. Renal insufficiency. 7. Abnormal cardiac enzymes. Dr. Gustafson, this patient was seen in cardiac consultation. He did have some chest pain. EKG is fairly unremarkable, though needs to be repeated. An echocardiogram should be performed to see if there is any segmental wall motion abnormality. He should have repeat cardiac enzymes and EKG performed and may require myocardial perfusion imaging in light of the present abnormal cardiac enzymes to see if there is any pattern to his cardiac enzymes. It is possible that his renal insufficiency is contributing to the abnormal cardiac enzymes at this time, although it was not on prior occasion when he was admitted to the hospital back in January. It is possible that his renal insufficiency is contributing to his minimally abnormal cardiac enzymes. Pradip King M.D. DR: CLOVIS JOB#: [id number] CC:
[2018-07-28] VITALS: BP 144/70
--- NOTE | 2018-07-28 00:34 | NUR ---
PRONOUNCEMENT: No Code. Called to pronounce patient. Absence of spontaneous respirations, no cardiac or breath sounds on auscultation. Pupils fixed and dilated. No carotid pulse or chest movement. Patient at 2349. Dr Francois notified. Family was notified at 2350 and verbalized no prior arrangements made for mortuary and ok'd to send decedent to [facility] [place] as she wont be able to see the decedent. Addendum: 07/28/18 at 1126 by Jennifer Neves RN Above note documented in error on incorrect patient. This patient is not
[2018-07-28 04:00] VITALS: BP 154/72
[2018-07-28] MEDS: Heparin 5000 units/ml inj SUBQ SCH ×3 (05:21→20:43)
[2018-07-28 06:16] LABS: APPEARANCE,URINE CLEAR; BILIRUBIN, URINE NEGATIVE (NEGATIVE); COLOR,URINE PALE YELLOW; GLUCOSE, URINE (UA) NEGATIVE (NEGATIVE); KETONES,URINE NEGATIVE (NEGATIVE); LEUKOCYTE ESTERASE ,URINE 3+ (NEGATIVE); NITRITE,URINE NEGATIVE (NEGATIVE); PH,URINE 5 (4.5-8.0); PROTEIN,URINE NEGATIVE (NEGATIVE); UROBILINOGEN,URINE NORMAL MG/DL (0.0-1.0)
[2018-07-28 06:41] LABS: BASOPHILS % (AUTO) 1.8 % (0.0-2.0); EOSINOPHILS % (AUTO) 4.9 % (0.0-3.0); HEMATOCRIT 41.7 % (42.0-52.0); HEMOGLOBIN 14.3 G/DL (14.2-18.0); LYMPHOCYTES % (AUTO) 39.5 % (20.0-45.0); MEAN CORPUSCULAR VOLUME 91 FL (80-99); MONOCYTES % (AUTO) 10.1 % (1.0-10.0); NEUTROPHILS % (AUTO) 43.8 % (45.0-75.0); PLATELET COUNT 236 K/UL (150-450); RED BLOOD COUNT 4.57 M/UL (4.70-6.10); RED CELL DISTRIBUTION WIDTH 11.8 % (11.6-14.8); WHITE BLOOD COUNT 5.2 K/UL (4.8-10.8)
[2018-07-28 07:09] LABS: ANION GAP 12 mmol/L (5-15); BLOOD UREA NITROGEN 20 mg/dL (7-18); CALCIUM 9.5 MG/DL (8.5-10.1); CARBON DIOXIDE 25 MMOL/L (21-32); CHLORIDE 105 MMOL/L (98-107); CREATININE 1.3 MG/DL (0.55-1.30); POTASSIUM 4.3 MMOL/L (3.5-5.1); SODIUM 142 MMOL/L (136-145)
--- NOTE | 2018-07-28 07:20 | NUR ---
NURSE NOTES: Received report from IMER Chong. Observed patient in bed, awake, alert, and able to make needs known. On room air, no s/s of acute respiratory distress noted. IV on right AC 20g intact and patent. Patient is ambulatory with stable gait. Denies pain at this time. Bed in lowest position, side rails up, and call light left within reach. Instructed to use call light for assistance.
--- NOTE | 2018-07-28 07:22 | NUR ---
HAND-OFF: Report given to IMER CUEVA.
[2018-07-28 08:00] VITALS: BP 119/54
--- NOTE | 2018-07-28 08:00 | NUR ---
NURSE NOTES: Dr King notified and made aware of latest troponin 0.032. No further orders noted at this time.
[2018-07-28] MEDS: Metoprolol Tartrate 50mg tab ORAL SCH (09:00)
--- NOTE | 2018-07-28 09:11 | NUR ---
NURSE NOTES: Dr King called back, instructed to hold metoprolol for today. BP 119/55 HR 66. Patient denies chest pain at this time. Will continue to monitor.
[2018-07-28] MEDS: hydroCHLOROthiazide 12.5mg TAB ORAL SCH (09:58)
[2018-07-28] MEDS: Docusate 100mg cap ORAL SCH ×2 (09:58→20:45)
[2018-07-28 12:00] VITALS: BP 150/76
--- NOTE | 2018-07-28 13:08 | NUR ---
Myocardial Perfusion Scan complete.
--- NOTE | 2018-07-28 14:11 | Infectious Diseases Prog Note ---
Assessment/Plan Assessment/Plan A) 1) uti, + ua, + symptoms - clinically improved, urine culture negative but on abx 2) chest pain 3) pmh noted 4) allergies - nkda P) 1) continue rocephin - can transition to oral ceftin x 5 days 2) stable ID standpoint 3) d/w Dr. Gustafson Subjective Constitutional: Denies: fatigue HEENT: Denies: congestion Respiratory: Denies: shortness of breath Cardiovascular: Denies: chest pain Gastrointestinal/Abdominal: Denies: nausea Genitourinary: Denies: dysuria, hematuria Allergies: Coded Allergies: No Known Allergies (Unverified , 02/10/16) Objective Vital Signs Last 24 Hour Vital Signs Date Time Temp Pulse Resp B/P (MAP) Pulse Ox O2 Delivery O2 Flow Rate FiO2 07/28/18 12:00 98.6 71 17 150/76 (100) 99 07/28/18 11:45 67 07/28/18 09:58 66 119/55 07/28/18 09:00 66 119/55 07/28/18 09:00 Room Air 07/28/18 08:00 97.7 66 16 119/54 (75) 99 07/28/18 07:37 76 07/28/18 04:00 98.0 88 20 154/72 (99) 99 07/28/18 04:00 66 07/28/18 00:00 98.0 80 20 144/70 (94) 99 07/28/18 00:00 58 07/27/18 21:00 Room Air 07/27/18 20:00 98.0 83 20 137/71 (93) 100 07/27/18 20:00 66 07/27/18 16:13 71 149/90 07/27/18 16:00 71 07/27/18 16:00 98.4 73 18 150/78 (102) 99 Height (Feet): 5 Height (Inches): 3.00 Weight (Pounds): 170 General Appearance: no acute distress HEENT: normocephalic, atraumatic, anicteric, mucous membranes moist Respiratory/Chest: lungs clear, normal breath sounds, no respiratory distress, no accessory muscle use Cardiovascular: normal rate, regular rhythm, no gallop/murmur Abdomen: normal bowel sounds, soft, non tender, no organomegaly, non distended Microbiology Date/Time Source Procedure Growth Status 07/27/18 04:50 Urine,Clean Catch Urine Culture - Preliminary NO GROWTH AFTER 24 HOURS Resulted Laboratory Tests Test 07/27/18 14:28 07/28/18 05:00 07/28/18 06:04 Troponin I 0.063 ng/mL (0.000-0.056) 0.032 ng/mL (0.000-0.056) Urine Color Pale yellow Urine Appearance Clear Urine pH 5 (4.5-8.0) Urine Specific [place] 1.015 (1.005-1.035) Urine Protein Negative (NEGATIVE) Urine Glucose (UA) Negative (NEGATIVE) Urine Ketones Negative (NEGATIVE) Urine Blood Negative (NEGATIVE) Urine Nitrite Negative (NEGATIVE) Urine Bilirubin Negative (NEGATIVE) Urine Urobilinogen Normal MG/DL (0.0-1.0) Urine Leukocyte Esterase 3+ (NEGATIVE) H Urine RBC 0 /HPF (0 - 0) Urine WBC 10-15 /HPF (0 - 0) H Urine Squamous Epithelial Cells Occasional /LPF Urine Bacteria Occasional /HPF (NONE) White Blood Count 5.2 K/UL (4.8-10.8) Red Blood Count 4.57 M/UL (4.70-6.10) L Hemoglobin 14.3 G/DL (14.2-18.0) Hematocrit 41.7 % (42.0-52.0) L Mean Corpuscular Volume 91 FL (80-99) Mean Corpuscular Hemoglobin 31.3 PG (27.0-31.0) H Mean Corpuscular Hemoglobin Concent 34.3 G/DL (32.0-36.0) Red Cell Distribution Width 11.8 % (11.6-14.8) Platelet Count 236 K/UL (150-450) Mean Platelet Volume 5.9 FL (6.5-10.1) L Neutrophils (%) (Auto) 43.8 % (45.0-75.0) L Lymphocytes (%) (Auto) 39.5 % (20.0-45.0) Monocytes (%) (Auto) 10.1 % (1.0-10.0) H Eosinophils (%) (Auto) 4.9 % (0.0-3.0) H Basophils (%) (Auto) 1.8 % (0.0-2.0) Sodium Level 142 MMOL/L (136-145) Potassium Level 4.3 MMOL/L (3.5-5.1) Chloride Level 105 MMOL/L (98-107) Carbon Dioxide Level 25 MMOL/L (21-32) Anion Gap 12 mmol/L (5-15) Blood Urea Nitrogen 20 mg/dL (7-18) H Creatinine 1.3 MG/DL (0.55-1.30) Estimat Glomerular Filtration Rate > 60 mL/min (>60) Glucose Level 110 MG/DL (74-106) H Calcium Level 9.5 MG/DL (8.5-10.1) Current Medications Medications (Trade) Dose Ordered Sig/Vasile Route PRN Reason Start Time Stop Time Status Last Admin Dose Admin Acetaminophen (Tylenol) 650 mg Q4H PRN ORAL Mild Pain (Pain Scale 1-3) 07/27/18 14:00 08/26/18 13:59 07/28/18 10:27 Acetaminophen (Tylenol) 650 mg Q4H PRN ORAL fever (temp>100.5 F) 07/27/18 14:00 08/26/18 13:59 Al Hydroxide/Mg Hydroxide (Mylanta II) 30 ml Q6H PRN ORAL dyspepsia 07/27/18 14:00 08/26/18 13:59 Amlodipine Besylate (Norvasc) 10 mg DAILY ORAL 07/28/18 09:00 08/27/18 08:59 07/28/18 09:58 Bisacodyl (Dulcolax) 10 mg HSPRN PRN RECTAL Constipation 07/27/18 14:00 08/26/18 13:59 Ceftriaxone Sodium 1 gm/ Dextrose 50 ml @ 100 mls/hr Q24H IVPB 07/27/18 21:00 08/03/18 20:59 07/27/18 21:33 Dextrose (Dextrose 50%) 25 ml Q30M PRN IV Hypoglycemia 07/27/18 14:00 08/26/18 13:59 Dextrose (Dextrose 50%) 50 ml Q30M PRN IV Hypoglycemia 07/27/18 14:00 08/26/18 13:59 Diphenhydramine HCl (Benadryl) 25 mg Q6H PRN ORAL Itching/Pruritis 07/27/18 14:00 08/26/18 13:59 Docusate Sodium (Colace) 100 mg EVERY 12 HOURS ORAL 07/27/18 21:00 08/26/18 20:59 07/28/18 09:58 Heparin Sodium (Porcine) (Heparin 5000 units/ml) 5,000 units EVERY 8 HOURS SUBQ 07/27/18 14:00 08/26/18 13:59 07/28/18 05:21 Hydralazine HCl (Apresoline) 25 mg Q6H PRN ORAL For High Blood Pressure 07/27/18 14:15 08/26/18 14:14 Hydrochlorothiazide (Hydrodiuril) 12.5 mg DAILY ORAL 07/28/18 09:00 08/27/18 08:59 07/28/18 09:58 Lorazepam (Ativan 2mg/ml 1ml) 0.5 mg Q4H PRN IV For Anxiety 07/27/18 14:00 08/03/18 13:59 Magnesium Hydroxide (Mom) 30 ml HSPRN PRN ORAL Constipation 07/27/18 14:00 08/26/18 13:59 Metoprolol Tartrate (Lopressor) 50 mg DAILY ORAL 07/28/18 09:00 08/27/18 08:59 Morphine Sulfate (Morphine Sulfate) 2 mg Q4H PRN IVP Moderate Pain (Pain Scale 4-6) 07/27/18 14:00 08/03/18 13:59 Morphine Sulfate (Morphine Sulfate) 4 mg Q4H PRN IVP Severe Pain (Pain Scale 7-10) 07/27/18 14:00 08/03/18 13:59 Nitroglycerin (Ntg) 0.4 mg Q5M X 3 DOSES PRN SL Prn Chest Pain 07/27/18 14:00 08/26/18 13:59 Ondansetron HCl (Zofran) 4 mg Q6H PRN IVP Nausea & Vomiting 07/27/18 14:00 08/26/18 13:59 Polyethylene Glycol (Miralax) 17 gm HSPRN PRN ORAL Constipation 07/27/18 14:00 08/26/18 13:59 Regadenoson (Lexiscan) 0.4 mg ONCE PRN IV stress test 07/27/18 18:45 07/29/18 18:44 07/28/18 11:59 Zolpidem Tartrate (Ambien) 5 mg HSPRN PRN ORAL Insomnia 07/27/18 14:30 08/03/18 14:29 07/27/18 21:04 Bulmaro Neumann MD Jul 28, 2018 14:11
--- NOTE | 2018-07-28 15:50 | Diagnostic Imaging Report ---
Indications: Chest pain Technique: Single day single isotope protocol utilized. Initially, resting images obtained using IV administration 11 millicuries 99M technetium Myoview. Subsequently, patient underwent lexiscan stress testing. See cardiology report for details. During Lexiscan infusion, IV administration 30.5 mCi 99 M technetium Myoview. SPECT and planar images obtained. SPECT images gated to 8 phases of the cardiac cycle were also obtained, and reformatted into cine images for evaluation of ejection fraction. Comparison: none Findings: Presence or absence of symptoms during infusion is not described in the cardiology report. Per cardiology report, resting EKG demonstrates normal sinus rhythm. Presence or absence of ST changes during infusion is not described in the cardiology report. Imaging demonstrates no fixed nor reversible post stress perfusion defects. Normal cardiac chamber size.. Calculated post stress ejection fraction 67%. No wall motion abnormality demonstrated Impression: Nonischemic clinical response to pharmacologic stress, per cardiology report Nonischemic electrocardiographic response to pharmacologic stress, per cardiology report No imaging findings to suggest ischemia, at level of stress achieved. Calculated post stress ejection fraction 67%
[2018-07-28 16:00] VITALS: BP 130/76
--- NOTE | 2018-07-28 19:05 | Cardiology Progress Note ---
Assessment/Plan Assessment/Plan 1. Questionable chest pain. 2. Hypertension. 3. Obesity. 4. Borderline diabetes. 5. Urinary tract infection. 6. Renal insufficiency. 7. Abnormal cardiac enzymes. mpi neg for nay perfusion abn bp is fine ok to dc bryon eform [facility] fu wtih pmd as outp Subjective Cardiovascular: Denies: chest pain, lightheadedness, palpitations Respiratory: Denies: shortness of breath Gastrointestinal/Abdominal: Denies: abdominal pain Genitourinary: Denies: burning Objective Last 24 Hour Vital Signs Date Time Temp Pulse Resp B/P (MAP) Pulse Ox O2 Delivery O2 Flow Rate FiO2 07/28/18 16:00 98.3 89 17 130/76 (94) 97 07/28/18 15:55 66 07/28/18 12:00 98.6 71 17 150/76 (100) 99 07/28/18 11:45 67 07/28/18 09:58 66 119/55 07/28/18 09:00 66 119/55 07/28/18 09:00 Room Air 07/28/18 08:00 97.7 66 16 119/54 (75) 99 07/28/18 07:37 76 07/28/18 04:00 98.0 88 20 154/72 (99) 99 07/28/18 04:00 66 07/28/18 00:00 98.0 80 20 144/70 (94) 99 07/28/18 00:00 58 07/27/18 21:00 Room Air 07/27/18 20:00 98.0 83 20 137/71 (93) 100 07/27/18 20:00 66 General Appearance: no apparent distress, alert Neck: supple Cardiovascular: normal rate, regular rhythm Respiratory/Chest: lungs clear Abdomen: normal bowel sounds, non tender, soft Extremities: no swelling Intake and Output 07/27/18 07/28/18 18:59 06:59 Intake Total 360 ml 290 ml Balance 360 ml 290 ml Intake Oral 360 ml 240 ml IV Total 50 ml # Voids 3 4 Laboratory Tests Test 07/28/18 05:00 07/28/18 06:04 Urine Color Pale yellow Urine Appearance Clear Urine pH 5 (4.5-8.0) Urine Specific [place] 1.015 (1.005-1.035) Urine Protein Negative (NEGATIVE) Urine Glucose (UA) Negative (NEGATIVE) Urine Ketones Negative (NEGATIVE) Urine Blood Negative (NEGATIVE) Urine Nitrite Negative (NEGATIVE) Urine Bilirubin Negative (NEGATIVE) Urine Urobilinogen Normal MG/DL (0.0-1.0) Urine Leukocyte Esterase 3+ (NEGATIVE) H Urine RBC 0 /HPF (0 - 0) Urine WBC 10-15 /HPF (0 - 0) H Urine Squamous Epithelial Cells Occasional /LPF Urine Bacteria Occasional /HPF (NONE) White Blood Count 5.2 K/UL (4.8-10.8) Red Blood Count 4.57 M/UL (4.70-6.10) L Hemoglobin 14.3 G/DL (14.2-18.0) Hematocrit 41.7 % (42.0-52.0) L Mean Corpuscular Volume 91 FL (80-99) Mean Corpuscular Hemoglobin 31.3 PG (27.0-31.0) H Mean Corpuscular Hemoglobin Concent 34.3 G/DL (32.0-36.0) Red Cell Distribution Width 11.8 % (11.6-14.8) Platelet Count 236 K/UL (150-450) Mean Platelet Volume 5.9 FL (6.5-10.1) L Neutrophils (%) (Auto) 43.8 % (45.0-75.0) L Lymphocytes (%) (Auto) 39.5 % (20.0-45.0) Monocytes (%) (Auto) 10.1 % (1.0-10.0) H Eosinophils (%) (Auto) 4.9 % (0.0-3.0) H Basophils (%) (Auto) 1.8 % (0.0-2.0) Sodium Level 142 MMOL/L (136-145) Potassium Level 4.3 MMOL/L (3.5-5.1) Chloride Level 105 MMOL/L (98-107) Carbon Dioxide Level 25 MMOL/L (21-32) Anion Gap 12 mmol/L (5-15) Blood Urea Nitrogen 20 mg/dL (7-18) H Creatinine 1.3 MG/DL (0.55-1.30) Estimat Glomerular Filtration Rate > 60 mL/min (>60) Glucose Level 110 MG/DL (74-106) H Calcium Level 9.5 MG/DL (8.5-10.1) Troponin I 0.032 ng/mL (0.000-0.056) Microbiology Date/Time Source Procedure Growth Status 07/27/18 04:50 Urine,Clean Catch Urine Culture - Preliminary NO GROWTH AFTER 24 HOURS Resulted Pradip King MD Jul 28, 2018 19:05
--- NOTE | 2018-07-28 19:37 | NUR ---
NURSE NOTES: Received patient from Lindsay WILLAMS. Patient is awake and oriented x4, family in the room, and patient is awaiting discharge. Patient is on room air, tolerating well showing no signs respiratory distress. IV site is Right AC 20g, patent and asymptomatic. Bed is locked, placed in lowest position, side rails up x2, patient is awaiting discharge. Will continue to monitor.
--- NOTE | 2018-07-28 19:37 | NUR ---
HAND-OFF: Report given to IMER Quezada. Patient in stable condition. OK to discharge per Dr Gustafson. Endorsed to pm nurse.
[2018-07-28 20:00] VITALS: BP 118/65
[2018-07-28] MEDS: cefTRIAXone 1 GM in D5W 50 ML IVPB SCH (20:43)
[2018-07-28] MEDS: Zolpidem 5mg tab ORAL PRN (23:24)
--- NOTE | 2018-07-29 | NUR ---
NURSE NOTES: Patient currently has a fever of 100.3. PRN for fever is oral, contacted Dr. Shah for new orders due to patient failing Video Swallow. Addendum: 07/29/18 at 0716 by Jocelyn Solorzano RN This note was entered in error. Nurse note was for another patient regarding fever
[2018-07-29 04:00] VITALS: BP 147/75
[2018-07-29] MEDS: Heparin 5000 units/ml inj SUBQ SCH (06:11)
--- NOTE | 2018-07-29 07:18 | NUR ---
HAND-OFF: Report given to Ramila WILLAMS. Patient is stable.
--- NOTE | 2018-07-29 07:38 | NUR ---
NURSE NOTES: Received report from IMER Maki. Patient in bed resting, no active s/s cardiac, respiratory distress noticed at this time. Patient on room air, AOx4, SR with HR 65. IV on right AC 20G, asymptomatic, patent, intact. Endorsed stress test done yesterday 07/28/18, Bed in lowest position, side rails upx2, call light within reach. Will continue to monitor.
[2018-07-29 08:00] VITALS: BP 153/74
[2018-07-29] MEDS: Docusate 100mg cap ORAL SCH (08:31)
[2018-07-29 08:33] VITALS: BP 155/74
[2018-07-29] MEDS: hydroCHLOROthiazide 12.5mg TAB ORAL SCH (08:33)
[2018-07-29] MEDS: Metoprolol Tartrate 50mg tab ORAL SCH (08:33)
--- NOTE | 2018-07-29 08:52 | NUR ---
NURSE NOTES: Left message Dr. Gustafson, regarding patient cleared from ID and cardiology stand point of view. Awaiting for call back. Will continue to monitor.
--- NOTE | 2018-07-29 09:21 | Cardiology Progress Note ---
Assessment/Plan Assessment/Plan 1. Questionable chest pain. 2. Hypertension. 3. Obesity. 4. Borderline diabetes. 5. Urinary tract infection. 6. Renal insufficiency. 7. Abnormal cardiac enzymes. mpi neg for any perfusion abn bp is fine ok to dc home form [facility] fu wtih pmd as outpt (this was discussed with lety flores care of pt on 07/28 and agin 07/29 thye indicate waiting for order form pmd) Subjective Cardiovascular: Denies: chest pain, lightheadedness, palpitations Respiratory: Denies: shortness of breath Gastrointestinal/Abdominal: Denies: abdominal pain Genitourinary: Denies: burning Subjective felt stressed after all the testin gyet today feels good Objective Last 24 Hour Vital Signs Date Time Temp Pulse Resp B/P (MAP) Pulse Ox O2 Delivery O2 Flow Rate FiO2 07/29/18 08:33 80 155/74 07/29/18 08:32 80 155/74 07/29/18 08:00 97.3 80 20 153/74 (100) 100 07/29/18 04:00 97.2 73 20 147/75 (99) 100 07/29/18 03:44 65 07/28/18 23:42 64 07/28/18 21:00 Room Air 07/28/18 20:00 97.4 74 20 118/65 (82) 95 07/28/18 19:59 84 07/28/18 16:00 98.3 89 17 130/76 (94) 97 07/28/18 15:55 66 07/28/18 12:00 98.6 71 17 150/76 (100) 99 07/28/18 11:45 67 07/28/18 09:58 66 119/55 General Appearance: no apparent distress, alert Neck: supple Cardiovascular: regular rhythm Respiratory/Chest: lungs clear Abdomen: normal bowel sounds, non tender, soft Extremities: no swelling Intake and Output 07/28/18 07/29/18 19:00 07:00 Intake Total 600 ml 170 ml Balance 600 ml 170 ml Intake Oral 600 ml 120 ml IV Total 50 ml # Voids 3 1 Microbiology Date/Time Source Procedure Growth Status 07/28/18 05:00 Urine,Catheterized Urine Culture - Preliminary NO GROWTH AFTER 24 HOURS Resulted 07/27/18 04:50 Urine,Clean Catch Urine Culture - Final NO GROWTH AFTER 48 HOURS Complete Pradip King MD Jul 29, 2018 09:21
--- NOTE | 2018-07-29 09:58 | NUR ---
NURSE NOTES: Receive phone call from Dr. Gustafson, per Dr. Gustafson, discharge patient to home, med recon already done. Order noted, entered, carried out.
[2018-07-29] MEDS ORDERED: CEFUROXIME500 MG PO (10:14)
--- NOTE | 2018-07-29 10:44 | NUR ---
NURSE NOTES: Patient discharged to home with home health per Dr. Gustafson. Patient's ID removed and placed in shredder. IV removed, night monitor returned to case monitor. Patient taking private vehicle per patient's preference in a stable condition. Patient discharged with all belongings, family member made aware.
--- NOTE | 2018-07-29 12:30 | NUR ---
CASE MANAGEMENT: REVIEW 07/28/2018 SI:ACS. T 98.3 HR 89 RR 17 B/P 130/76 SATS 97% ON RA BUN 20 GLU 110 IS: NORVASC PO QD HCTZ PO QD LOPRESSOR PO QD CEFTRIAXONE IV Q24H TELE STATUS DCP: PATIENT TO BE DISCHARGED TO HOME ONCE MEDICALLY CLEARED. 07/29/2018>>>> DC HOME W/ HH
--- NOTE | 2018-07-29 12:36 | NUR ---
DISCHARGE PLANNING: NOTE CLINICALS FAXED TO [facility] T: [phone] F: [phone] Addendum: 07/29/18 at 1237 by Shannon Mcgraw CM PRIMARY CM TO F/U Addendum: 07/29/18 at 1733 by Shannon Mcgraw CM PER [facility] AT [facility] PATIENT IS ACCEPTED AND WILL BE FOLLOWED FOR HH
--- NOTE | 2018-07-29 13:53 | Discharge Summary ---
Discharge Summary Hospital Course Date of Admission Jul 27, 2018 at 06:15 Date of Discharge Jul 29, 2018 at 10:47 Admitting Diagnosis ACS Reason for Hospitalization: lightheadedness/dizziness HPI Pa Hoyos is a 67 year old male who was admitted on Jul 27, 2018 at 06:15 for Acute Coronary Syndrome Consultations cardiology ([facility]) ID ([facility]) Hospital Course 67 y/o AA ma with hx of HTN, presents with atypical chest pain with associated lightheadedness/dizziness along with what appears to be a partially treated UTI. No tele events, ruled out for acs with serial EKG/trops, normal echo and also had a normal stress test. Pt also had a partially treated UTI, seen by ID, improved with IV abx and transitioned to PO upon DC. Discharge Medications Continued Medications: Amlodipine Besylate (Norvasc) 10 Mg Tablet 10 MG ORAL DAILY, #90 TAB Cefuroxime Axetil* (Cefuroxime*) 500 Mg Tablet 500 MG PO Q12HR, #10 TAB (This prescription has been renewed) Hydrochlorothiazide* (Hydrochlorothiazide*) 12.5 Mg Capsule 12.5 MG ORAL DAILY, #90 CAP Metoprolol Tartrate (Metoprolol Tartrate) 25 Mg Tablet 50 MG ORAL DAILY for HTN , TAB (This prescription has been renewed) Zolpidem Tartrate* (Zolpidem Tartrate*) 10 Mg Tablet 10 MG ORAL BEDTIME PRN for Insomnia, TAB 0 Refills (This prescription has been renewed) Discharge Condition Upon Discharge: stable Discharge Disposition Patient was discharged to home with HH Discharge Diagnoses: (1) UTI (urinary tract infection) (2) Hypertension Veronica Gustafson MD Jul 29, 2018 13:53
--- NOTE | 2018-07-29 19:34 | Cardiology Report ---
APPROVED REPORT EKG Measurement Heart [id number] Sinus bradycardia Nonspecific T wave abnormality Abnormal ECG
--- NOTE | 2018-07-29 19:38 | Cardiology Report ---
APPROVED REPORT EKG Measurement Heart [id number] ID [id number] Normal sinus rhythm Inferior infarct, age undetermined Abnormal ECG
--- NOTE | 2018-07-30 11:15 | Cardiology Report ---
APPROVED REPORT EXAM: Two-dimensional and M-mode echocardiogram with Doppler and color Doppler. INDICATION Chest Pain M-Mode DIMENSIONS IVSd1.4 (0.7-1.1cm)Left Atrium (MM)2.8 (1.6-4.0cm) LVDd4.7 (3.5-5.6cm)Aortic Root2.5 (2.0-3.7cm) PWd1.3 (0.7-1.1cm)Aortic Cusp Exc.1.7 (1.5-2.0cm) LVDs3.5 (2.5-4.0cm) PWs1.5 cm Other Information Technically limited study due to poor acoustical windows. Normal left ventricular chamber size, systolic function and wall motion to extent visualized. Left ventricular ejection fraction estimated to be 55-60 %. No evidence of left ventricular hypertrophy. No evidence of pericardial effusion. All other cardiac chamber sizes are within normal limits. Focal aortic valve sclerosis with adequate cusp excursion. Thickened mitral valve leaflets with normal excursion. Mitral annulus and aortic root calcification. Pulmonic valve not well visualized. Normal tricuspid valve structure. IVC at normal size with physiologic collapse. A color flow and spectral Doppler study was performed and revealed: Trace mitral regurgitation. Mitral diastolic velocities suggest reduced left ventricular relaxation c/w mild LV diastolic dysfunction (Grade I). Trace tricuspid regurgitation. Tricuspid systolic velocities suggests peak right ventricular systolic pressure of 15 mmHg.
--- NOTE | 2018-07-31 16:30 | Consultation ---
DATE OF CONSULTATION: 07/27/2018 INFECTIOUS DISEASES CONSULTATION CONSULTING PHYSICIAN: Bulmaro Neumann M.D. ATTENDING PHYSICIAN: Veronica Gustafson M.D. REFERRING PHYSICIAN: Veronica Gustafson M.D. REASON FOR CONSULTATION: Urinalysis that was positive UTI, complicated UTI CHIEF COMPLAINT: The patient's chief complaint coming in to the hospital is chest pain. HISTORY OF PRESENT ILLNESS: This is a very pleasant 67-year-old male who came in to [facility] with chest pain. The patient was noted to have dysuria and frequency. The patient had a urinalysis that was positive that had 15-20 white blood cells and 3+ leukocyte esterase. The patient was given Rocephin in the emergency room and his urinary symptoms improved. At this time, I was going to continue the Rocephin for the patient. Infectious Disease consultation was requested for antibiotic management. The patient with complicated urinary tract infection. Chest pain workup is being done by the primary consultants. MAR was noted. Orders noted. Notes were reviewed REVIEW OF SYSTEMS: CONSTITUTIONAL: The patient has no fever, chills, night sweats, weight loss. HEAD AND NECK: No head pain or neck pain. No neck stiffness. No thrush, dysphagia. CARDIAC: He did come in with chest pain, but currently no chest pain. GENITOURINARY: He had frequency and dysuria. PULMONARY: No congestion, shortness of breath, hemoptysis, or secretions. GASTROINTESTINAL: No nausea, vomiting, or diarrhea. EXTREMITIES: No extremity pain. SKIN: No rash or itching . NEUROLOGIC: No seizures. . No focal weakness. PAST MEDICAL HISTORY: The patient's past medical history includes history of the following. The patient has past medical history as discussed he comes in with chest pain. He has history of chest pain and hypertension. Other past medical history includes elevated creatinine, acute kidney disease on chronic kidney disease. No history of diabetes. ALLERGIES: No known drug allergies. No antibiotic allergies. SOCIAL HISTORY: Negative for smoking, alcohol, or drug abuse. FAMILY HISTORY: Noncontributory. Negative for exposure to tuberculosis or cancer MEDICATIONS: With regards to antibiotics, the patient was placed on Rocephin which I will continue 1 gram daily. Prior to admission, the patient's medication was on amlodipine, hydrochlorothiazide, metoprolol, and zolpidem. Medications here, upon reviewing the MAR, he was given, has I discussed Rocephin, hydrochlorothiazide, metoprolol, Lopressor, Norvasc, Ambien, Apresoline as needed, heparin, bisacodyl, polyethylene, Zofran as needed, diphenhydramine as needed, aspirin. PHYSICAL EXAMINATION: VITAL SIGNS: Temperature is 97.5, pulse rate 75, respiratory rate 18, blood pressure 142/73, saturating 99% on room air. GENERAL: Alert and responsive, seems to be oriented, no acute distress. HEAD AND NECK: Oral exam, no thrush. Eye exam, no icterus. Neck is supple. No jugular venous distention. Normocephalic. HEART: Regular. No gallop or murmur. No friction rub. ABDOMEN: Soft. Positive bowel sounds and nontender. LUNGS: Clear bilaterally. No rhonchi or rales. SKIN: No rash. MUSCULOSKELETAL: No effusions. Legs are without cellulitis. PERIPHERAL VASCULAR: No cyanosis. GENITOURINARY: No Gonzalez. No CVA tenderness. LINES: Line sites without phlebitis. NEUROLOGIC: Intact. Nonfocal. Alert and oriented. LABORATORY DATA: UA 3+ leukocyte esterase, 15 to 20 white blood cells. Creatinine on admission 1.4. White count on admission 6.6, hemoglobin 15.0. Urine culture is pending. IMAGING STUDIES: Chest x-ray showed no acute process, no acute disease. ASSESSMENT AND PLAN: 1. The patient has complicated urinary tract infection with history of frequency, elevated creatinine. Continue Rocephin for complicated urinary tract infection. Pending final urine culture. 2. Elevated creatinine, chronic kidney disease. Monitor closely. 3. Avoid nephrotoxic drugs. 4. Chest pain. Workup per primary Cardiology. 5. Hypertension treatment per primary Cardiology. 6. No known drug allergies. 7. Social history is negative. 8. Family history is noncontributory. 9. MAR was noted. 10. Case discussed with RN. 11. Case discussed with Dr. Gustafson. 12. Continue treatment per primary consultants. Bulmaro Neumann M.D. DR: Vandana JOB#: [id number] CC:
== END 2018-07-29 10:47 | disposition home health service (06) ==
LOC: EMR 05:50 → 2E 06:15 → INTOOBSV 06:15 → EDBEDREQ 06:36 → 2E 08:01
DX: R07.89 Other chest pain (principal); N39.0 Urinary tract infection, site not specified; I12.9 Hypertensive chronic kidney disease with stage 1 through stage 4 chronic kidney disease, or unspecified chronic kidney disease; N18.9 Chronic kidney disease, unspecified; F41.9 Anxiety disorder, unspecified; R00.1 Bradycardia, unspecified; R94.31 Abnormal electrocardiogram [ECG] [EKG]; E66.9 Obesity, unspecified; R79.89 Other specified abnormal findings of blood chemistry; E78.00 Pure hypercholesterolemia, unspecified; Z79.899 Other long term (current) drug therapy; Z68.30 Body mass index [BMI] 30.0-30.9, adult
CPT/HCPCS: 36415 ×2; 71045; 78452; 80048; 80053; 81001; 81003; 82550; 82553; 84484 ×3; 85025 ×2; 87086 ×2; 93005 ×2; 93017; 93306; 96365; 99284; A4641; J0696 ×2; J1644 ×3; J2785; G0378

== ENCOUNTER 2018-10-28 09:59 | Emergency (ER) | payer MEDICARE ==
[~2018-10-28] VITALS: Ht 160 cm; Wt 76.2 kg
[~2018-10-28 09:59] MED LIST changes: +CEFUROXIME500 MG PO; +LOPRESSOR25 M1 ORAL; +ZOLPIDEM TARTRA10 MG ORAL
[2018-10-28 10:10] VITALS: BP 155/56
--- NOTE | 2018-10-28 10:10 | NUR ---
ED Nurse Note: pt walked in to ED due to pain on right lower back since July. per pt, it feels like "sharp" and on and off. denies any urinary problem. no fever or chill reported. AAO x4. respirations even and non-labored noted. skin warm to touch. no open wound noted. on teletypesetter monitor. will wait for the further order.
--- NOTE | 2018-10-28 10:56 | Diagnostic Imaging Report ---
EXAM: XR Chest, 1 View CLINICAL HISTORY: ABD PAIN TECHNIQUE: Frontal view of the chest. COMPARISON: No relevant prior studies available. FINDINGS: Lungs: No consolidation. Pleural space: Unremarkable. No pneumothorax. Heart: Unremarkable. No cardiomegaly. Mediastinum: Unremarkable. Bones joints: No acute fracture. IMPRESSION: No acute cardiopulmonary disease.
[2018-10-28 11:02] LABS: APPEARANCE,URINE CLEAR; BILIRUBIN, URINE NEGATIVE (NEGATIVE); COLOR,URINE PALE YELLOW; GLUCOSE, URINE (UA) NEGATIVE (NEGATIVE); KETONES,URINE NEGATIVE (NEGATIVE); LEUKOCYTE ESTERASE ,URINE 2+ (NEGATIVE); NITRITE,URINE NEGATIVE (NEGATIVE); PH,URINE 6 (4.5-8.0); PROTEIN,URINE NEGATIVE (NEGATIVE); UROBILINOGEN,URINE NORMAL MG/DL (0.0-1.0)
[2018-10-28 11:07] LABS: BASOPHILS % (AUTO) 0.8 % (0.0-2.0); EOSINOPHILS % (AUTO) 5.7 % (0.0-3.0); HEMATOCRIT 43.8 % (42.0-52.0); HEMOGLOBIN 14.7 G/DL (14.2-18.0); LYMPHOCYTES % (AUTO) 25.7 % (20.0-45.0); MEAN CORPUSCULAR VOLUME 94 FL (80-99); MONOCYTES % (AUTO) 6.3 % (1.0-10.0); NEUTROPHILS % (AUTO) 61.5 % (45.0-75.0); PLATELET COUNT 261 K/UL (150-450); RED BLOOD COUNT 4.65 M/UL (4.70-6.10); RED CELL DISTRIBUTION WIDTH 11.8 % (11.6-14.8); WHITE BLOOD COUNT 6.1 K/UL (4.8-10.8)
[2018-10-28 11:11] LABS: INR 0.9 (0.9-1.1)
[2018-10-28] MEDS ORDERED: cefTRIAXone 1 GM in NS 55 ML IVPB ONE (11:15)
[2018-10-28 11:16] LABS: ANION GAP 5 mmol/L (5-15); BLOOD UREA NITROGEN 19 mg/dL (7-18); CALCIUM 9.5 MG/DL (8.5-10.1); CARBON DIOXIDE 31 MMOL/L (21-32); CHLORIDE 104 MMOL/L (98-107); CREATININE 1.3 MG/DL (0.55-1.30); POTASSIUM 3.8 MMOL/L (3.5-5.1); SODIUM 140 MMOL/L (136-145)
[2018-10-28 11:25] LABS: ALANINE AMINOTRANSFERASE 29 U/L (12-78); ALBUMIN 3.7 G/DL (3.4-5.0); ALBUMIN/GLOBULIN RATIO 0.9 (1.0-2.7); ALKALINE PHOSPHATASE 60 U/L (46-116); ASPARTATE AMINO TRANSFERASE 18 U/L (15-37); BILIRUBIN,TOTAL 0.3 MG/DL (0.2-1.0); CREATINE KINASE 109 U/L (26-308)
[2018-10-28 12:00] VITALS: BP 132/72
--- NOTE | 2018-10-28 12:00 | NUR ---
ED Nurse Note: pt lying in bed comfortably without facial grimacing or moaning noted. will wait for the further order.
--- NOTE | 2018-10-28 12:10 | NUR ---
ED Nurse Note: per pt, "can I have some itching cream. I have bug bite." redness noted on left forearm and right side of face. Dr. Mendoza notified. will wait for the further order.
[2018-10-28] MEDS ORDERED: DiphenhydrAMINE 50mg/ml Inj IVP ONE (12:15)
[2018-10-28 14:00] VITALS: BP 139/69
--- NOTE | 2018-10-28 14:00 | NUR ---
ED Nurse Note: pt lying in bed comfortably. no reports pain or itch. will wait for the further order.
--- NOTE | 2018-10-28 14:57 | Emergency Room Report ---
History of Present Illness General Chief Complaint: Back Pain-No Injury Source: Patient Present Illness HPI The patient presents with back pain, dysuria and rectal pain. This is been going on for the past few days. He was recently treated for a urinary tract infection and possible prostatitis. Calling his pharmacy we determined that he filled Levaquin 7 days on 10/03 and Amox 8.29. His symptoms improved however returned recently. He denies any fevers or chills. Back pain is more on the left hand side and aching. He rates this pain 6/10. Is fairly constant but somewhat positional. It does not radiate. He is been referred to a urologist and the appointment is for November 17. The undiagnosed pain concerns him as he is worried that there is something serious. He suffers from anxiety and insomnia. This is been worsened with stress at home with his daughter. In the past he is taken Xanax and Ativan with some help. Had been hospitalized July 2018 for ACS. This was the ID consult: 1. The patient has complicated urinary tract infection with history of frequency, elevated creatinine. Continue Rocephin for complicated urinary tract infection. Pending final urine culture. 2. Elevated creatinine, chronic kidney disease. Monitor closely. 3. Avoid nephrotoxic drugs. 4. Chest pain. Workup per primary Cardiology. 5. Hypertension treatment per primary Cardiology. Of note the patient was not discharged on antibiotics A CT scan was performed January 21, 2018. Final diagnosis no acute findings. Patient denies chest pain or dyspnea. Allergies: Coded Allergies: No Known Allergies (Unverified , 02/10/16) Patient History Past Medical History: see triage record Social History: Denies: smoking, alcohol use, drug use Social History Narrative with 16 yo daughter -works security Reviewed Nursing Documentation: PMH: Agreed; PSxH: Agreed Nursing Documentation-PMH Hx Cardiac Problems: Yes Hx Hypertension: Yes Hx Cancer: No Hx Gastrointestinal Problems: Yes Hx Dialysis: No Hx Neurological Problems: No Review of Systems All Other Systems: negative except mentioned in HPI Physical Exam Vital Signs Date Time Temp Pulse Resp B/P (MAP) Pulse Ox O2 Delivery O2 Flow Rate FiO2 10/28/18 10:02 97.7 97 17 154/74 (100) 99 Room Air Sp02 EP Interpretation: reviewed, normal General Appearance: well appearing, no apparent distress, GCS 15 Head: normocephalic Eyes: bilateral eye normal inspection, bilateral eye PERRL, bilateral eye EOMI ENT: moist mucus membranes Neck: supple Respiratory: lungs clear, normal breath sounds Cardiovascular #1: regular rate, rhythm Cardiovascular #2: 2+ radial (R) Gastrointestinal: normal inspection, normal bowel sounds, non tender, no mass, non-distended Genitourinary: no CVA tenderness, penis normal Musculoskeletal: back normal, gait/station normal, normal range of motion Neurologic: alert, oriented x3, grossly normal Psychiatric: anxious Skin: other - Possible telangiectasias chest Medical Decision Making Diagnostic Impression: Primary Impression: UTI (urinary tract infection) Qualified Codes: N39.0 - Urinary tract infection, site not specified Additional Impressions: Anxiety Back pain Qualified Codes: M54.5 - Low back pain ER Course Patient presents with back pain rectal pain dysuria several days duration. Differential includes pyelonephritis, sepsis, urinary tract infection, renal stone, prostatitis amongst others. The January 2018 CT scan excludes aneurysm and renal stone.. Evaluation with EKG, chest x-ray and labs. Concern of resting tachycardia. Patient treated with gentle IV hydration and analgesia. Patient is placed on a conveyor monitor. Labs remarkable for normal white count and CMP with minimally elevated glucose. Urinalysis with pyuria. BUN 19 with creatinine of 1.3 which is baseline. Rocephin given. The patient was complaining about itching in the left inner arm. This was not related to administration of Rocephin. He requested Benadryl and this was administered. Improved with treatment. Discussed findings with patient. Discussed the need with follow-up with urologist. The patient is requesting referrals to a private doctor and also a urologist. Discussed treatment plan. Urine culture ordered. Patient stable for outpatient observation and treatment. Laboratory Tests Test 10/28/18 10:50 White Blood Count 6.1 K/UL (4.8-10.8) Red Blood Count 4.65 M/UL (4.70-6.10) L Hemoglobin 14.7 G/DL (14.2-18.0) Hematocrit 43.8 % (42.0-52.0) Mean Corpuscular Volume 94 FL (80-99) Mean Corpuscular Hemoglobin 31.6 PG (27.0-31.0) H Mean Corpuscular Hemoglobin Concent 33.5 G/DL (32.0-36.0) Red Cell Distribution Width 11.8 % (11.6-14.8) Platelet Count 261 K/UL (150-450) Mean Platelet Volume 5.3 FL (6.5-10.1) L Neutrophils (%) (Auto) 61.5 % (45.0-75.0) Lymphocytes (%) (Auto) 25.7 % (20.0-45.0) Monocytes (%) (Auto) 6.3 % (1.0-10.0) Eosinophils (%) (Auto) 5.7 % (0.0-3.0) H Basophils (%) (Auto) 0.8 % (0.0-2.0) Prothrombin Time 10.0 SEC (9.30-11.50) Prothrombin Time INR 0.9 (0.9-1.1) PTT 27 SEC (23-33) Urine Color Pale yellow Urine Appearance Clear Urine pH 6 (4.5-8.0) Urine Specific [place] 1.010 (1.005-1.035) Urine Protein Negative (NEGATIVE) Urine Glucose (UA) Negative (NEGATIVE) Urine Ketones Negative (NEGATIVE) Urine Blood Negative (NEGATIVE) Urine Nitrite Negative (NEGATIVE) Urine Bilirubin Negative (NEGATIVE) Urine Urobilinogen Normal MG/DL (0.0-1.0) Urine Leukocyte Esterase 2+ (NEGATIVE) H Urine RBC 0 /HPF (0 - 0) Urine WBC 5-10 /HPF (0 - 0) H Urine Squamous Epithelial Cells Occasional /LPF Urine Bacteria Occasional /HPF (NONE) Sodium Level 140 MMOL/L (136-145) Potassium Level 3.8 MMOL/L (3.5-5.1) Chloride Level 104 MMOL/L (98-107) Carbon Dioxide Level 31 MMOL/L (21-32) Anion Gap 5 mmol/L (5-15) Blood Urea Nitrogen 19 mg/dL (7-18) H Creatinine 1.3 MG/DL (0.55-1.30) Estimate Glomerular Filtration Rate > 60 mL/min (>60) Glucose Level 144 MG/DL (74-106) H Lactic Acid Level 1.20 mmol/L (0.4-2.0) Calcium Level 9.5 MG/DL (8.5-10.1) Total Bilirubin 0.3 MG/DL (0.2-1.0) Aspartate Amino Transferase (AST) 18 U/L (15-37) Alanine Aminotransferase (ALT) 29 U/L (12-78) Alkaline Phosphatase 60 U/L (46-116) Total Creatine Kinase 109 U/L (26-308) Troponin I 0.000 ng/mL (0.000-0.056) Pro-B-Type Natriuretic Peptide 27 pg/mL (0-125) Total Protein 7.6 G/DL (6.4-8.2) Albumin 3.7 G/DL (3.4-5.0) Globulin 3.9 g/dL Albumin/Globulin Ratio 0.9 (1.0-2.7) L Lipase 114 U/L (73-393) Urine Opiates Screen Negative (NEGATIVE) Urine Barbiturates Screen Negative (NEGATIVE) Phencyclidine (PCP) Screen Negative (NEGATIVE) Urine Amphetamines Screen Negative (NEGATIVE) Urine Benzodiazepines Screen Negative (NEGATIVE) Urine Cocaine Screen Negative (NEGATIVE) Urine Marijuana (THC) Screen Negative (NEGATIVE) Serum Alcohol < 3 mg/dL EKG Diagnostic Results Rate: normal Rhythm: NSR ST Segments: no acute changes Rhythm Strip Diag. Results EP Interpretation: yes Rhythm: NSR, no PVC's, no ectopy Chest X-Ray Diagnostic Results Chest X-Ray Diagnostic Results : Chest X-Ray Ordered: Yes # of Views/Limited/Complete: 1 View Indication: Other EP Interpretation: Yes Interpretation: no consolidation, no effusion, no pneumothorax Impression: No acute disease Electronically Signed by: Electronically signed by Blaze Mendoza MD Last Vital Signs Date Time Temp Pulse Resp B/P (MAP) Pulse Ox O2 Delivery O2 Flow Rate FiO2 10/28/18 15:29 98.1 70 18 127/71 99 Room Air Status: improved Disposition: HOME, SELF-CARE Condition: Improved Scripts Lorazepam* (ATIVAN*) 0.5 Mg Tablet 0.5 MG ORAL THREE TIMES A DAY, #4 TAB Prov: Blaze Mendoza MD 10/28/18 Ibuprofen* (MOTRIN*) 600 Mg Tablet 600 MG ORAL Q6H PRN for For Pain, #20 TAB 0 Refills Prov: Blaze Mendoza MD 10/28/18 Levofloxacin* (LEVAQUIN*) 500 Mg Tablet 500 MG ORAL DAILY, #10 TAB Prov: Blaze Mendoza MD 10/28/18 Cephalexin* (KEFLEX*) 500 Mg Capsule 500 MG ORAL EVERY 6 HOURS, #28 CAP Prov: Blaze Mendoza MD 10/28/18 Referrals: NON PHYSICIAN (PCP) Blaze Mendoza MD Oct 28, 2018 14:57
[2018-10-28] MEDS ORDERED: ATIVAN0.5 MG ORAL (15:03)
[2018-10-28] MEDS ORDERED: LEVAQUIN500 MG ORAL (15:03)
[2018-10-28] MEDS ORDERED: IBUPROFEN600 MG ORAL (15:03)
[2018-10-28] MEDS ORDERED: CEPHALEXIN500 MG ORAL (15:03)
[2018-10-28 15:29] VITALS: BP 127/71
--- NOTE | 2018-10-28 15:29 | NUR ---
ER DISCHARGE NOTE: Patient is cleared to be discharged per ERMD, pt is aox4, on room air, with stable vital signs. pt was given dc and prescription instructions, pt was able to verbalize understanding, pt id band and iv site removed without complications. pt is able to ambulate with steady gait. pt took all belongings.
--- NOTE | 2018-10-29 17:21 | Cardiology Report ---
APPROVED REPORT EKG Measurement Heart [id number] Normal sinus rhythm with sinus arrhythmia Minimal voltage criteria for LVH, may be normal variant Possible Anterior infarct, age undetermined Abnormal ECG
== END 2018-10-28 15:29 | disposition home or self-care (01) ==
LOC: EMR 10:50
DX: N39.0 Urinary tract infection, site not specified (principal); F41.9 Anxiety disorder, unspecified; M54.5 Low back pain; G47.00 Insomnia, unspecified; I12.9 Hypertensive chronic kidney disease with stage 1 through stage 4 chronic kidney disease, or unspecified chronic kidney disease; N18.9 Chronic kidney disease, unspecified
CPT/HCPCS: 36415; 71045; 80053; 80307; 81003; 82550; 83605; 83690; 83880; 84484; 85025; 85610; 85730; 87086; 93005; 96361; 96365; 96375; 99284; G0480; J0696; J1200; 80329

== ENCOUNTER 2019-12-23 09:31 | Emergency (ER) | payer MEDICARE ==
[~2019-12-23] VITALS: Ht 160 cm; Wt 84.4 kg
[~2019-12-23 09:31] MED LIST changes: +ATIVAN0.5 MG ORAL; +CEPHALEXIN500 MG ORAL; +IBUPROFEN600 MG ORAL; +LEVAQUIN500 MG ORAL
[2019-12-23] MEDS ORDERED: Ketorolac 30mg Inj IV ONE (09:45)
[2019-12-23 09:55] VITALS: BP 160/86
--- NOTE | 2019-12-23 09:56 | Emergency Room Report ---
History of Present Illness General Chief Complaint: Hypertension Source: Patient Present Illness HPI Patient is a 69-year-old male past medical history of obesity, CAD, hypertension and prediabetes who presents to the ER for elevated blood pressure. Patient states that his blood pressure has been in the 180s for the past couple weeks. He denies any headache, chest pain, shortness of breath, focal weakness or slurred speech. He states that he has blurry vision which is baseline for him due to age-related issues and he needs new glasses but has not been able to see his internal investigator. Patient also complains of a burning sensation when he urinates. He denies any hematuria, abdominal pain, nausea or vomiting. Patient also complains of generalized body aches. He states that his muscles hurt all over. He denies any trauma. Allergies: Coded Allergies: No Known Allergies (Unverified , 02/10/16) COVID-19 Screening Contact w/high risk pt: No Experienced COVID-19 symptoms?: No COVID-19 Testing performed ACCOUNTS RECEIVABLE SUPERVISOR: No Patient History Reviewed Nursing Documentation: PMH: Agreed; PSxH: Agreed Nursing Documentation-PMH Past Medical History: No History, Except For Hx Cardiac Problems: Yes Hx Hypertension: Yes Hx Diabetes: Yes - prediabetes Hx Cancer: No Hx Gastrointestinal Problems: Yes Hx Dialysis: No Hx Neurological Problems: No Review of Systems All Other Systems: negative except mentioned in HPI Physical Exam Vital Signs Date Time Temp Pulse Resp B/P (MAP) Pulse Ox O2 Delivery O2 Flow Rate FiO2 12/23/19 09:36 98.1 99 16 170/87 (114) 100 Room Air Sp02 EP Interpretation: reviewed, normal General Appearance: no apparent distress, alert, GCS 15, non-toxic Head: normocephalic, atraumatic Eyes: bilateral eye normal inspection, bilateral eye PERRL ENT: hearing grossly normal, normal pharynx, no angioedema, normal voice Neck: full range of motion, supple/symm/no masses Respiratory: chest non-tender, lungs clear, normal breath sounds, speaking full sentences Cardiovascular #1: regular rate, rhythm, no edema Gastrointestinal: normal bowel sounds, non tender, soft, non-distended, no guarding, no rebound, overweight Genitourinary: no CVA tenderness Musculoskeletal: normal range of motion, no calf tenderness Neurologic: customer orders clerk III-XII nml as tested, oriented x3 Psychiatric: no suicidal/homicidal ideation Skin: no rash Lymphatic: no adenopathy Medical Decision Making Diagnostic Impression: Primary Impression: Hypertension Additional Impression: Constipation ER Course Patient's blood pressure improved after IV hydralazine. Patient has asymptomatic elevated blood pressure. He specifically has no headache, dizziness, chest pain, shortness of breath, slurred speech, focal weakness or hematuria. I advised him to follow-up with his primary care physician to adjust his home medications. Patient also states that he needs new glasses. I advised him to follow-up with his internal investigator for new eyeglasses. Patient also states that he feels his right TMJ pop occasionally not currently. Advised him to follow-up with his dentist for further treatment. Patient's labs demonstrate no significant acute abnormalities. Patient CT head demonstrates no acute intracranial pathology. Patient CT abdomen pelvis demonstrates constipation. I am starting the patient on Colace. After discussing risks and benefits of further diagnostics, treatment plans, as well as indications for and risks of admission, the patient is agreeable to being discharged home. I have explained that their evaluation and treatment in the emergency department today is an important step towards them achieving better health but that their evaluation today is not intended to replace further evaluation and treatment by a physician in their local clinic. I have explained that while the current findings suggest no immediate life threatening emergency they will require further evaluation and treatment by a physician of their choice in their area. They understand that it will be necessary for them to review the final reports of their ED visit with their clinic physician. We have reviewed indications for return to the Emergency Department. I have explained that additional time may need to pass and/or additional testing as an outpatient may be necessary before a definitive diagnosis can be made. They tell me they are willing to follow up as instructed within the timeframe I recommend. They appear to understand what we discussed. Additionally they understand that if they are unable to be seen by an outpatient physician they are welcome, and in fact should, return to the Emergency Department for a repeat evaluation. The patient is stable at time of discharge. Laboratory Tests Test 12/23/19 09:55 White Blood Count 6.4 K/UL (4.8-10.8) Red Blood Count 4.69 M/UL (4.70-6.10) L Hemoglobin 15.0 G/DL (14.2-18.0) Hematocrit 45.4 % (42.0-52.0) Mean Corpuscular Volume 97 FL (80-99) Mean Corpuscular Hemoglobin 32.0 PG (27.0-31.0) H Mean Corpuscular Hemoglobin Concent 33.0 G/DL (32.0-36.0) Red Cell Distribution Width 12.8 % (11.6-14.8) Platelet Count 275 K/UL (150-450) Mean Platelet Volume 6.3 FL (6.5-10.1) L Neutrophils (%) (Auto) 53.5 % (45.0-75.0) Lymphocytes (%) (Auto) 33.9 % (20.0-45.0) Monocytes (%) (Auto) 7.9 % (1.0-10.0) Eosinophils (%) (Auto) 3.5 % (0.0-3.0) H Basophils (%) (Auto) 1.2 % (0.0-2.0) Urine Color Yellow Urine Appearance Clear Urine pH 6 (4.5-8.0) Urine Specific [place] 1.010 (1.005-1.035) Urine Protein Negative (NEGATIVE) Urine Glucose (UA) Negative (NEGATIVE) Urine Ketones Negative (NEGATIVE) Urine Blood 1+ (NEGATIVE) H Urine Nitrite Negative (NEGATIVE) Urine Bilirubin Negative (NEGATIVE) Urine Urobilinogen 1 MG/DL (0.0-1.0) H Urine Leukocyte Esterase Negative (NEGATIVE) Urine RBC 0-2 /HPF (0 - 0) H Urine WBC 0 /HPF (0 - 0) Urine Squamous Epithelial Cells Occasional /LPF Urine Bacteria Occasional /HPF (NONE) Sodium Level 137 MMOL/L (136-145) Potassium Level 3.8 MMOL/L (3.5-5.1) Chloride Level 103 MMOL/L (98-107) Carbon Dioxide Level 27 MMOL/L (21-32) Anion Gap 7 mmol/L (5-15) Blood Urea Nitrogen 15 mg/dL (7-18) Creatinine 1.4 MG/DL (0.55-1.30) H Estimated Glomerular Filtration Rate > 60 mL/min (>60) Glucose Level 106 MG/DL (74-106) Calcium Level 8.8 MG/DL (8.5-10.1) Magnesium Level 2.0 MG/DL (1.8-2.4) Total Bilirubin 0.5 MG/DL (0.2-1.0) Aspartate Amino Transferase (AST) 24 U/L (15-37) Alanine Aminotransferase (ALT) 36 U/L (12-78) Alkaline Phosphatase 63 U/L (46-116) Troponin I 0.000 ng/mL (0.000-0.056) Pro-B-Type Natriuretic Peptide 27 pg/mL (0-125) Total Protein 8.0 G/DL (6.4-8.2) Albumin 4.1 G/DL (3.4-5.0) Globulin 3.9 g/dL Albumin/Globulin Ratio 1.1 (1.0-2.7) Lipase 124 U/L (73-393) Urine Opiates Screen Negative (NEGATIVE) Urine Barbiturates Screen Negative (NEGATIVE) Phencyclidine (PCP) Screen Negative (NEGATIVE) Urine Amphetamines Screen Negative (NEGATIVE) Urine Benzodiazepines Screen Negative (NEGATIVE) Urine Cocaine Screen Negative (NEGATIVE) Urine Marijuana (THC) Screen Negative (NEGATIVE) EKG Diagnostic Results Troponin ordered: Yes When was troponin ordered?: Dec 23, 2019 EKG Time: 09:50 EP Interpretation: Nila Nye MD Rate: normal - 85 bpm Rhythm: NSR ST Segments: no acute changes ASA given to the pt in ED: No Rhythm Strip Diag. Results Rhythm Strip Time: 09:55 EP Interpretation: yes - Nila Nye MD Rate: 88 bpm Rhythm: NSR, no PVC's, no ectopy Chest X-Ray Diagnostic Results Chest X-Ray Diagnostic Results : Chest X-Ray Ordered: Yes # of Views/Limited/Complete: 1 View Indication: Other - hypertension EP Interpretation: Yes Interpretation: no consolidation, no effusion, no pneumothorax, no acute cardiopulmonary disease Impression: No acute disease Last Vital Signs Date Time Temp Pulse Resp B/P (MAP) Pulse Ox O2 Delivery O2 Flow Rate FiO2 12/23/19 09:36 98.1 99 16 170/87 (114) 100 Room Air Disposition: HOME, SELF-CARE Condition: Stable Scripts Docusate Sodium* (COLACE*) 100 Mg Capsule 100 MG ORAL TWICE A DAY for 14 Days, CAP Prov: Nila Nye M.D. 12/23/19 Ibuprofen* (MOTRIN*) 600 Mg Tablet 600 MG ORAL FOUR TIMES A DAY, #30 TAB 0 Refills Prov: Nila Nye M.D. 12/23/19 Referrals: NON PHYSICIAN (PCP) Additional Instructions: The patient was provided with discharge instructions, notified to follow-up with a primary care doctor and or specialist in the next 24-48 hours, and to return to the ED if they have worsening of their symptoms. Please note that this report is being documented using [employer] technology. This can lead to erroneous entry secondary to incorrect interpretation by the dictating instrument. Nila Nye M.D. Dec 23, 2019 09:56
--- NOTE | 2019-12-23 10:05 | NUR ---
ED Nurse Note: Pt walked into ED for high blood pressure 185/98. Pt states he takes his blood pressure med in the afternoon. Pt also states he has intermittent R rib pain 08/16. Pt is alert and orientedx4, ambulatory. IV established.
[2019-12-23 10:06] LABS: APPEARANCE,URINE CLEAR; BASOPHILS % (AUTO) 1.2 % (0.0-2.0); BILIRUBIN, URINE NEGATIVE (NEGATIVE); COLOR,URINE YELLOW; EOSINOPHILS % (AUTO) 3.5 % (0.0-3.0); GLUCOSE, URINE (UA) NEGATIVE (NEGATIVE); HEMATOCRIT 45.4 % (42.0-52.0); KETONES,URINE NEGATIVE (NEGATIVE); LEUKOCYTE ESTERASE ,URINE NEGATIVE (NEGATIVE); LYMPHOCYTES % (AUTO) 33.9 % (20.0-45.0); MEAN CORPUSCULAR VOLUME 97 FL (80-99); MONOCYTES % (AUTO) 7.9 % (1.0-10.0); NEUTROPHILS % (AUTO) 53.5 % (45.0-75.0); NITRITE,URINE NEGATIVE (NEGATIVE); PH,URINE 6 (4.5-8.0); PLATELET COUNT 275 K/UL (150-450); PROTEIN,URINE NEGATIVE (NEGATIVE); RED BLOOD COUNT 4.69 M/UL (4.70-6.10); RED CELL DISTRIBUTION WIDTH 12.8 % (11.6-14.8); UROBILINOGEN,URINE 1 MG/DL (0.0-1.0); WHITE BLOOD COUNT 6.4 K/UL (4.8-10.8)
[2019-12-23 10:16] LABS: ANION GAP 7 mmol/L (5-15); BLOOD UREA NITROGEN 15 mg/dL (7-18); CALCIUM 8.8 MG/DL (8.5-10.1); CARBON DIOXIDE 27 MMOL/L (21-32); CHLORIDE 103 MMOL/L (98-107); CREATININE 1.4 MG/DL (0.55-1.30); POTASSIUM 3.8 MMOL/L (3.5-5.1); SODIUM 137 MMOL/L (136-145)
--- NOTE | 2019-12-23 10:23 | Diagnostic Imaging Report ---
EXAM: XR Chest, 1 View CLINICAL HISTORY: PAIN TECHNIQUE: Frontal view of the chest. COMPARISON: Chest radiograph on 10/28/2018 FINDINGS: Lungs: Unremarkable. No consolidation. Pleural space: Unremarkable. No pneumothorax. Heart: Unremarkable. No cardiomegaly. Mediastinum: Unremarkable. Bones/joints: Unremarkable. IMPRESSION: Normal chest x-ray.
[2019-12-23 10:29] LABS: ALANINE AMINOTRANSFERASE 36 U/L (12-78); ALBUMIN 4.1 G/DL (3.4-5.0); ALBUMIN/GLOBULIN RATIO 1.1 (1.0-2.7); ALKALINE PHOSPHATASE 63 U/L (46-116); ASPARTATE AMINO TRANSFERASE 24 U/L (15-37); BILIRUBIN,TOTAL 0.5 MG/DL (0.2-1.0)
--- NOTE | 2019-12-23 11:00 | Diagnostic Imaging Report ---
EXAM: CT Head Without Intravenous Contrast CLINICAL HISTORY: PAIN TECHNIQUE: Axial computed tomography images of the head/brain without intravenous contrast. CTDI is 53.40 mGy and DLP is 992.10 mGy-cm. One or more of the following dose reduction techniques were used: automated exposure control, adjustment of the mA and/or kV according to patient size, use of iterative reconstruction technique. COMPARISON: None FINDINGS: Brain: No acute infarct or hemorrhage. No extra-axial fluid collection. No mass effect or midline shift. Ventricles and sulci: Normal. No ventriculomegaly or intraventricular hemorrhage. Bones: Normal. No bony lesion or acute fracture. Subcutaneous tissues: Normal. Sinuses: Mild mucosal thickening in the ethmoid air cells and right sphenoid sinus. Mastoid air cells: Normal. Orbits: Grossly unremarkable. Other: Atherosclerotic calcifications in the intracranial vasculature. IMPRESSION: No acute intracranial abnormality.
--- NOTE | 2019-12-23 11:33 | Diagnostic Imaging Report ---
EXAM: CT Abdomen and Pelvis Without Intravenous Contrast CLINICAL HISTORY: PAIN TECHNIQUE: Axial computed tomography images of the abdomen and pelvis without intravenous contrast. CTDI is 8 mGy and DLP is 413.2 mGy-cm. One or more of the following dose reduction techniques were used: automated exposure control, adjustment of the mA and/or kV according to patient size, use of iterative reconstruction technique. COMPARISON: None FINDINGS: Lung bases: Unremarkable. No mass. No consolidation. Mediastinum: Small hiatal hernia. ABDOMEN: Liver: Unremarkable. Gallbladder and bile ducts: Unremarkable. No calcified stones. No ductal dilation. Pancreas: Unremarkable. No ductal dilation. Spleen: Unremarkable. No splenomegaly. Adrenals: Nonspecific mild prominence of the adrenal glands. Kidneys and ureters: Nonspecific bilateral perinephric fat stranding. No hydronephrosis or stone. Stomach and bowel: Moderate to large amount of stool in the rectum may represent fecal impaction. No bowel obstruction. Evaluation of the stomach is limited by underdistention. No mucosal thickening. PELVIS: Appendix: Normal appendix. Bladder: Prominence of the bladder wall is nonspecific. Please correlate with urinalysis if concerned for cystitis. No stones. Reproductive: Unremarkable as visualized. ABDOMEN and PELVIS: Intraperitoneal space: Unremarkable. No free air. No significant fluid collection. Bones/joints: Mild degenerative changes of the spine. No acute fracture. No dislocation. Soft tissues: Small fat-containing umbilical hernia. Vasculature: Atherosclerotic changes of the vasculature. No aortic aneurysm. Lymph nodes: Unremarkable. No enlarged lymph nodes. IMPRESSION: 1. Moderate to large amount of stool in the rectum may represent fecal impaction. No bowel obstruction. 2. Prominence of the bladder wall is nonspecific. Please correlate with urinalysis if concerned for cystitis.
[2019-12-23] MEDS ORDERED: COLACE100 MG ORAL (11:35)
[2019-12-23] MEDS ORDERED: IBUPROFEN600 M1 ORAL (11:35)
[2019-12-23 11:40] VITALS: BP 164/65
[2019-12-23 11:45] VITALS: BP 164/65
== END 2019-12-23 11:49 | disposition home or self-care (01) ==
LOC: EMR 09:43
DX: I10 Essential (primary) hypertension (principal); K59.00 Constipation, unspecified; I25.10 Atherosclerotic heart disease of native coronary artery without angina pectoris; E66.9 Obesity, unspecified; R73.03 Prediabetes
CPT/HCPCS: 36415; 70450; 71045; 74176; 80053; 80307; 81003; 83690; 83735; 83880; 84484; 85025; 93005; 96374; 96375; 96376; 99284; J0360; J1885

== ENCOUNTER 2020-02-11 07:46 | Emergency (ER) | payer MEDICARE ==
[~2020-02-11] VITALS: Ht 160 cm; Wt 74.8 kg
[~2020-02-11 07:46] MED LIST changes: +COLACE100 MG ORAL; +IBUPROFEN600 M1 ORAL
--- NOTE | 2020-02-11 07:52 | NUR ---
ED Nurse Note: Pt walked in to ED c/o left ankle pain x3 months. Denies fall/ injury to the area. Pt also c/o back pain x3 days stating that he might have a UTI. Denies fever/ chills. AAOx4, no SOB.
--- NOTE | 2020-02-11 07:57 | NUR ---
ED Nurse Note: Urine sent.
[2020-02-11 08:18] LABS: APPEARANCE,URINE CLEAR; BILIRUBIN, URINE NEGATIVE (NEGATIVE); COLOR,URINE PALE YELLOW; GLUCOSE, URINE (UA) NEGATIVE (NEGATIVE); KETONES,URINE NEGATIVE (NEGATIVE); LEUKOCYTE ESTERASE ,URINE NEGATIVE (NEGATIVE); NITRITE,URINE NEGATIVE (NEGATIVE); PH,URINE 6 (4.5-8.0); PROTEIN,URINE NEGATIVE (NEGATIVE); UROBILINOGEN,URINE NORMAL MG/DL (0.0-1.0)
--- NOTE | 2020-02-11 09:00 | NUR ---
ED Nurse Note: xray at bedside.
[2020-02-11] MEDS ORDERED: TYLENOL EXTRA500 MG ORAL (09:19)
[2020-02-11 09:27] VITALS: BP 145/75
--- NOTE | 2020-02-11 09:27 | NUR ---
ER DISCHARGE NOTE: Patient is cleared to be discharged per ERMD, pt is aox4, on room air, with stable vital signs. pt was given dc and prescription instructions, pt was able to verbalize understanding, pt id band removed. pt is able to ambulate with steady gait. pt took all belongings.
--- NOTE | 2020-02-11 11:02 | Emergency Room Report ---
History of Present Illness General Chief Complaint: Lower Extremity Injury Source: Patient Present Illness HPI 69-year-old male presents for evaluation. States has been having some lower back pain and left ankle pain. Has been having left ankle pain for the last 3 months. States he thinks it has something to do with his boots. Pain is dull, 6 out of 10, nonradiating. Is able to bear weight. Is wondering if he has a urinary tract infection. Denies dysuria or hematuria. Denies fevers or chills. No other aggravating relieving factors. 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 Patient History Past Medical History: DM, HTN Past Surgical History: none Pertinent Family History: none Social History: Denies: smoking, alcohol use, drug use Immunizations: UTD Reviewed Nursing Documentation: PMH: Agreed; PSxH: Agreed Nursing Documentation-PMH Hx Cardiac Problems: Yes Hx Hypertension: Yes Hx Diabetes: Yes - prediabetes Hx Cancer: No Hx Gastrointestinal Problems: Yes Hx Dialysis: No Hx Neurological Problems: No Review of Systems All Other Systems: negative except mentioned in HPI Physical Exam Vital Signs Date Time Temp Pulse Resp B/P (MAP) Pulse Ox O2 Delivery O2 Flow Rate FiO2 02/11/20 07:48 97.9 76 19 161/82 (108) 98 Room Air Sp02 EP Interpretation: reviewed, normal General Appearance: no apparent distress, alert, GCS 15, non-toxic Head: normocephalic, atraumatic Eyes: bilateral eye normal inspection, bilateral eye PERRL ENT: hearing grossly normal, normal pharynx, no angioedema, normal voice Neck: full range of motion, supple/symm/no masses Respiratory: chest non-tender, lungs clear, normal breath sounds, speaking full sentences Cardiovascular #1: regular rate, rhythm, no edema Cardiovascular #2: 2+ carotid (R), 2+ carotid (L), 2+ radial (R), 2+ radial (L), 2+ dorsalis pedis (R), 2+ dorsalis pedis (L) Gastrointestinal: normal bowel sounds, non tender, soft, non-distended, no guarding, no rebound Rectal: deferred Genitourinary: normal inspection, no CVA tenderness Musculoskeletal: back normal, normal range of motion, gait/station normal, other - deformity L ankle. lateral angulation to the toes. Neurologic: alert, motor strength/tone normal, oriented x3, sensory intact, responsive, speech normal Psychiatric: judgement/insight normal, memory normal, mood/affect normal, no suicidal/homicidal ideation Reflexes: 3+ bicep (R), 3+ bicep (L), 3+ tricep (R), 3+ tricep (L), 3+ knee (R), 3+ knee (L) Skin: no rash Lymphatic: no adenopathy Medical Decision Making Diagnostic Impression: Primary Impression: Ankle pain Qualified Codes: M25.572 - Pain in left ankle and joints of left foot; G89.29 - Other chronic pain Additional Impression: Back pain Qualified Codes: M54.5 - Low back pain ER Course Hospital Course 69-year-old male presents with lower back pain, left ankle pain and deformity for months Differential diagnoses include: Fracture, dislocation, sprain, contusion Clinical course Patient placed on stretcher. After initial history and physical, I ordered UA and xray L ankle Xraysprelim read shows no acute fracture/dislocation. However there appears to be gross deformity and outward angulation perhaps due to an old fracture. I am unable to identify it fracture at this time. UA negative. Pain in the back most likely muscular discussed findings with patient. Will refer to podiatry. Safe for discharge with close outpatient follow-up Diagnosis - ankle pain, back pain Stable and discharged to homeweight bear as tolerated. Followup with podiatry. Return to ED if symptoms recur or worsen Laboratory Tests Test 02/11/20 07:58 Urine Color Pale yellow Urine Appearance Clear Urine pH 6 (4.5-8.0) Urine Specific Koppel 1.005 (1.005-1.035) Urine Protein Negative (NEGATIVE) Urine Glucose (UA) Negative (NEGATIVE) Urine Ketones Negative (NEGATIVE) Urine Blood Negative (NEGATIVE) Urine Nitrite Negative (NEGATIVE) Urine Bilirubin Negative (NEGATIVE) Urine Urobilinogen Normal MG/DL (0.0-1.0) Urine Leukocyte Esterase Negative (NEGATIVE) Last Vital Signs Date Time Temp Pulse Resp B/P (MAP) Pulse Ox O2 Delivery O2 Flow Rate FiO2 02/11/20 09:27 98.0 78 20 145/75 100 Room Air Status: improved Disposition: HOME, SELF-CARE Condition: Stable Scripts Acetaminophen* (TYLENOL EXTRA STRENGTH*) 500 Mg Tablet 500 MG ORAL Q8H PRN for Prn Headache/Temp > 101, #30 TAB 0 Refills Prov: Juan Caceres MD 02/11/20 Referrals: NOT CHOSEN IPA/MD,REFERRING (PCP) Brett Cam DPM Patient Instructions: Ankle Pain Juan Caceres MD Feb 11, 2020 11:02
--- NOTE | 2020-02-11 12:12 | Diagnostic Imaging Report ---
Indication: Acute pain due to chronically twisted ankle Technique: 3 views of the left ankle Comparison: none Findings: No acute fracture. No dislocation. The joint spaces are preserved. There are vascular calcifications Impression: No acute process
== END 2020-02-11 09:27 | disposition home or self-care (01) ==
LOC: EMR 08:05
DX: M25.572 Pain in left ankle and joints of left foot (principal); M54.5 Low back pain; E11.9 Type 2 diabetes mellitus without complications; I10 Essential (primary) hypertension
CPT/HCPCS: 81003; 99283